=== PATIENT | male | born 1955 | race Caucasian/White ===

== ENCOUNTER 2025-04-19 18:09 | Inpatient (IN) | payer OTHER ==
[~2025-04-19] VITALS: Ht 188 cm; Wt 90.0 kg
--- NOTE | 2025-04-19 18:17 | ED.PDOC ---
CPR-HPI HPI Comments 69 y/o M, ROBERTA, with PMHx of PE, presents to the ED in full arrest with auto- pulse in place. EMS reports, patient is coming from home where found patient unresponsive; last seen normal 1000 this morning (04/19/25). Per EMS, upon arrival to scene had initiated CPR and patient's initial rhythm was asystole then converted to AFib then back to asystole. In route to the ED, patient was given x5 epinephrin and x2 lidocaine with no change in status. Patient was approximally down for x30min TOBACCO WAREHOUSE AGENT at the ED at 1807, ROSC was obtained at 1810. At this time patient was transferred to ED bed 19 and care is ongoing according to ACLS protocol. Time Seen by MD: 18:07 Reviewed Notes: Nurses Notes, Housekeeping And Laundry Team Leader Notes, Medications, Allergies Allergies: Uncoded Allergies: CORTIZONE TOPICAL (Allergy, Severe, 04/18/22) Information Source: Emergency Med Personnel Mode of Arrival: EMS Timing: Minutes Duration: Down time prior EMS: (30), Total time prior hopital: (37) Onset: Unknown Available Hx: Unknown Inital rhythm: Asystole Treatment: CPR, Defibrillation Response: Sustained return of pulse Associated signs and symptoms: Unknown Past Medical History PAST MEDICAL HISTORY: PE Surgical History: Unknown Family History Family History: Unknown Social History Smoker: Unknown Alcohol: Unknown Drugs: Unknown Lives In: Home Unable to Obtain due to: Medical Urgency Was a procedure done? Was a procedure done?: No Differential Dx CPR Differential Diagnosis: Cardiopulmonary arrest, Pulmonary Embolus X-Ray, Labs, Meds, VS Vital Signs Date Time Temp Pulse Resp B/P (MAP) Pulse Ox O2 Delivery O2 Flow Rate FiO2 04/19/25 19:38 138/76 04/19/25 19:00 83 129/75 (93) 100 04/19/25 18:58 81 8 128/76 (93) 100 04/19/25 18:53 79 132/73 (92) 04/19/25 18:50 132/73 04/19/25 18:48 77 30 116/74 (88) 100 04/19/25 18:46 60/35 04/19/25 18:43 81 8 116/67 (83) 100 04/19/25 18:38 75 11 93/58 (70) 99 04/19/25 18:33 75 21 83/50 (61) 98 04/19/25 18:30 78 10 78/48 (58) 96 04/19/25 18:29 79 15 79/54 (62) 96 04/19/25 18:27 80 17 56/34 (41) 86 04/19/25 18:23 86 17 60/35 (43) 88 04/19/25 18:21 70 20 117/49 (71) 94 100 04/19/25 18:13 96 04/19/25 18:12 97.4 95 16 105/68 (80) 97.4 Lab Test 04/19/25 19:12 04/19/25 18:20 04/19/25 18:14 Range/Units Blood Gas Specimen Type Arterial Blood Gas Sample Site Right radial Blood Gas Patient Temperature 37.0 Arterial Blood Date Drawn [id number] Arterial Blood pH 7.040 *L 7.350-7.450 Arterial Blood Partial Pressure CO2 57.8 H 35.0-48.0 mmHg Arterial Blood Partial Pressure O2 285.4 H 83.0-108.0 mmHg Arterial Blood HCO3 15.3 L 21.0-28.0 mmol/L Arterial Blood Oxygen Saturation 99.4 H 94.0-98.0 % Arterial Blood Base Excess -15.7 L -2.0-3.0 mmol/L Arterial Blood Oxyhemoglobin 98.2 H 94.0-98.0 % Arterial Blood Carboxyhemoglobin 0.3 L 0.5-1.5 % Arterial Blood Methemoglobin 0.9 0.0-1.5 % Arterial Blood Deoxyhemoglobin 0.6 0.0-5.0 % Bassam Test Modified Blood Gas Total Hemoglobin 14.30 13.5-17.5 g/dL Blood Gas Set Respiration Rate 20.0 Blood Gas Modality Vent - ac FiO2 % 100.0 Blood Gas Tidal Volume 450.0 Blood Gas PEEP or CPAP 5.0 Blood Gas Critical Value Read Back Yes Blood Gas Notified Whom joe Morrison md Blood Gas Notified Time [id number] Blood Gas Notified By jennifer Becerra rrt Urine Color Yellow Yellow Urine Clarity Turbid H Clear Urine pH 6.0 5.0-9.0 Urine Specific [place] 1.025 1.001-1.035 Urine Protein 1+ H Negative Urine Ketones Negative Negative Urine Blood 1+ H Negative /uL Urine Nitrite Negative Negative Urine Bilirubin Negative Negative Urine Urobilinogen Normal Negative mg/dL Urine Leukocyte Esterase 1+ Negative /uL Urine RBC 13 0 - 3 /hpf Urine Microscopic WBC 16 H 0-3 /HPF Urine Squamous Epithelial Cells Few <5 /hpf Urine Bacteria Few H None Seen /hpf Urine Hyaline Casts Few 0 - 2 /lpf Urine Mucus Few None Seen Urine Glucose Normal Normal mg/dL White Blood Count 4.2 L 4.4-10.8 10^3/uL Red Blood Count 4.20 L 4.5-5.90 10^6/uL Hemoglobin 12.9 L 13.5-17.5 g/dL Hematocrit 41.8 41.0-53.0 % Mean Corpuscular Volume 99.3 80.0-100.0 fL Mean Corpuscular Hemoglobin 30.7 28.0-32.0 pg Mean Corpuscular Hemoglobin Concent 30.9 L 32.0-36.0 g/dL Red Cell Distribution Width 16.2 H 11.8-14.3 % Platelet Count 108 L 140-450 10^3/uL Mean Platelet Volume 10.0 6.9-10.8 fL Neutrophils (%) (Auto) 37.0-80.0 % Lymphocytes (%) (Auto) 10.0-50.0 % Monocytes (%) (Auto) 0.0-12.0 % Basophils (%) (Auto) 0.0-2.0 % Neutrophils # (Auto) 1.6-8.6 10 ^3/uL Lymphocytes # (Auto) 0.4-5.4 10 ^3/uL Monocytes # (Auto) 0-1.3 10 ^3/uL Differential Total Cells Counted 100.0 100 Neutrophils % (Manual) 36 L 37.0-80.0 Band Neutrophils % (Manual) 0 Lymphocytes % (Manual) 53 H 10.0-50.0 Monocytes % (Manual) 8 0-12 Eosinophils % (Manual) 3 0-7 Basophils % (Manual) 0 0.0-2.0 Metamyelocytes % (manual) 0 Myelocytes % (Manual) 0 Promyelocytes % (Manual) 0 Blast Cells % (Manual) 0 Reactive Lymphocytes 0 Platelet Estimate Decreased Sodium Level 140 136-145 mmol/L Potassium Level 4.2 3.5-5.1 mmol/L Chloride Level 104 98-107 mmol/L Carbon Dioxide Level 16 L 20-31 mmol/L Anion Gap 20 H 5-15 Blood Urea Nitrogen 16 9-23 mg/dL Creatinine 1.08 0.700-1.30 mg/dL Glomerular Filtration Rate Calc 74 >90 mL/min BUN/Creatinine Ratio 14.8 10.0-20.0 Serum Glucose 367 H 74-106 mg/dL Lactic Acid Level 10.7 *H 0.4-2.0 mmol/L Calcium Level 8.5 L 8.7-10.4 mg/dL Phosphorus Level 8.0 H 2.4-5.1 mg/dL Magnesium Level 2.7 H 1.6-2.6 mg/dL Total Bilirubin 0.2 0.2-1.0 mg/dL Aspartate Amino Transferase (AST) 153 H 13-40 U/L Alanine Aminotransferase (ALT) 134 H 7-40 U/L Alkaline Phosphatase 109 46-116 U/L Troponin I High Sensitivity 1227 *H </=54 ng/L B-Type Natriuretic Peptide 198.22 0-100 pg/mL Total Protein 5.4 L 5.7-8.2 g/dL Albumin 3.6 3.2-4.8 g/dL Lipase 41 12-53 U/L Current Medications Medications (Trade) Dose Ordered Sig/Brittany Route Start Time Stop Time Status Last Admin Norepinephrine Bitartrate 250 ml @ 3.75 mls/hr Q24H IV 04/19/25 18:30 04/19/25 18:46 Sodium Chloride 1,000 ml @ 1,000 mls/hr Q1H ONCE IV 04/19/25 18:45 04/19/25 19:44 DC 04/19/25 18:32 Time of 1ST Reevaluation: 18:37 Reevaluation 1ST: Unchanged Patient Education/Counseling: Pt Unresponsive Family Education/Counseling: Diagnosis, Treatment SEPSIS Sepsis Screen Physician Orders Blood Culture (04/19/25 18:18) Urine Bacterial Culture (04/19/25 18:18) Insert Kat Catheter QSHIFT (04/19/25 18:18) Troponin-I Hs (04/19/25 19:18) Troponin-I Hs (04/19/25 21:18) Electrocardigram (04/19/25 19:18) Electrocardigram (04/19/25 21:18) Ventilator Orders (04/19/25 18:22) Respiratory Culture W/ Gs (04/19/25 18:22) Abg W/ Co-Ox (04/19/25 19:00) Communication Order (04/19/25 18:23) Norepinephrine 8 Mg/250ml Kit (Levophed) (04/19/25 18:30) Chest Portable (04/19/25 18:30) Calcium Gluc 1,000mg/50ml-Ns (04/19/25 19:15) Head Without Contrast (04/19/25 19:19) Ct Chest/Ab/Pl W Con- Iv Only (04/19/25 19:19) Sodium Bicarb 50meq/50ml Vial (04/19/25 19:30) Vital Signs Date Time Temp Pulse Resp B/P (MAP) Pulse Ox O2 Delivery O2 Flow Rate FiO2 04/19/25 19:38 138/76 04/19/25 19:00 83 129/75 (93) 100 04/19/25 18:58 81 8 128/76 (93) 100 04/19/25 18:53 79 132/73 (92) 04/19/25 18:50 132/73 04/19/25 18:48 77 30 116/74 (88) 100 04/19/25 18:46 60/35 04/19/25 18:43 81 8 116/67 (83) 100 04/19/25 18:38 75 11 93/58 (70) 99 04/19/25 18:33 75 21 83/50 (61) 98 04/19/25 18:30 78 10 78/48 (58) 96 04/19/25 18:29 79 15 79/54 (62) 96 04/19/25 18:27 80 17 56/34 (41) 86 04/19/25 18:23 86 17 60/35 (43) 88 04/19/25 18:21 70 20 117/49 (71) 94 100 04/19/25 18:13 96 04/19/25 18:12 97.4 95 16 105/68 (80) 97.4 Laboratory Tests Test 04/19/25 18:14 Lactic Acid Level 10.7 mmol/L (0.4-2.0) *H White Blood Count 4.2 10^3/uL (4.4-10.8) L Medications Medications Dose Ordered Sig/Brittany Route Start Time Stop Time Status Last Admin Dose Admin Norepinephrine Bitartrate 250 ml @ 3.75 mls/hr Q24H IV 04/19/25 18:30 04/19/25 18:46 Sodium Chloride 1,000 ml @ 1,000 mls/hr Q1H ONCE IV 04/19/25 18:45 04/19/25 19:44 DC 04/19/25 18:32 Critical Care Note Critical Care Time?: No Heart Score Heart Score: Heart Score Response (Comments) Value History N/A 0 EKG N/A 0 Age N/A 0 Risk Factors N/A 0 Troponin N/A 0 Total 0 Stability Stability form required: No I personally scribed for DALTON MORRISON MD ([email or web address]) on 04/19/25 at 18:17. Electronically submitted by Keyona Haider ([facility] [employer] I personally scribed for DALTON MORRISON MD ([email or web address]) on 04/19/25 at 19:02. Electronically submitted by Keyona Haider ([facility] [employer] I personally scribed for DALTON MORRISON MD ([email or web address]) on 04/19/25 at 19:46. Electronically submitted by Keyona Haider ([facility] [employer] DALTON MORRISON MD Apr 19, 2025 18:17
--- NOTE | 2025-04-19 18:24 | ECG ---
[facility] Test Date: 2025-04-19 Test Time: 18:13:32 Pat Name: SANDRA SUH Department[facility] Patient [id number] Room: Gender: M Cloud Architect: : [id number] Requested By: DALTON FREDERICK Order Number: [id number] Reading MD: Jon Paredes Measurements Intervals Schneider Rate: 96 P: -80 [place]: 131 QRS: 134 QRSD: 194 T: -77 QT: 432 QTc: 546 Interpretive Statements Sinus or ectopic atrial rhythm Right bundle branch block Repol abnrm, severe global ischemia (LM/MVD) Baseline wander in lead(s) I Electronically Signed On 04-21-2025 16:33:09 PST by Jon Paredes Please click the below link to view image of tracing.
[2025-04-19] MEDS: NOREPINEPHRINE 8 MG/250ML KIT 250 ML IV ONE (18:31)
[2025-04-19] MEDS: SODIUM CHLORIDE 0.9% 1,000 ML IV ONE (18:32)
[2025-04-19] MEDS: NOREPINEPHRINE 8 MG/250ML KIT 250 ML IV SCH (18:46)
[2025-04-19 18:51] LABS: Hematocrit 41.8 % (41.0-53.0); Hemoglobin 12.9 g/dL (13.5-17.5); Mean Corpuscular Hemoglobin 30.7 pg (28.0-32.0); Mean Corpuscular Volume 99.3 fL (80.0-100.0)
[2025-04-19 18:56] LABS: Urine Protein, UAD 1+ (Negative)
[2025-04-19 19:07] LABS: Albumin 3.6 g/dL (3.2-4.8); Alkaline Phosphatase 109 U/L (46-116); Anion Gap 20 (5-15); BUN/Creatinine Ratio 14.8 (10.0-20.0); Blood Urea Nitrogen 16 mg/dL (9-23); Chloride 104 mmol/L (98-107); Lipase 41 U/L (12-53); Potassium 4.2 mmol/L (3.5-5.1); Sodium 140 mmol/L (136-145)
[2025-04-19 19:10] LABS: Alanine Aminotransferase 134 U/L (7-40); Bilirubin, Total 0.2 mg/dL (0.2-1.0); Calcium 8.5 mg/dL (8.7-10.4); Carbon Dioxide 16 mmol/L (20-31); Glucose 367 mg/dL (74-106); Magnesium 2.7 mg/dL (1.6-2.6); Total Protein 5.4 g/dL (5.7-8.2)
--- NOTE | 2025-04-19 19:10 | DVH ---
CHEST RADIOGRAPH INDICATION: s/p intubation TECHNIQUE: Single frontal view of the chest was obtained COMPARISON: None FINDINGS: ET tube tip in the distal trachea terminating a proximally 1.5 cm above the valerio. NG tube at the gastric fundus. Cardiac silhouette is enlarged with slight prominence of the pulmonary vasculature. Mild streaky bibasilar atelectatic changes. IMPRESSION: ETT tip well positioned. Cardiomegaly with mild pulmonary venous congestion.
[2025-04-19 19:13] LABS: Lactic Acid w/Reflex 10.7 mmol/L (0.4-2.0)
[2025-04-19 19:16] LABS: Total Cells Counted 100.0 (100)
[2025-04-19 19:27] LABS: Base Excess -15.7 mmol/L (-2.0-3.0)
--- NOTE | 2025-04-19 19:46 | RESUS ---
CODE KIRSTEN ASSESSSMENT History of Events History of Events: Secured code kirsten arrived at 1807 intubated size 7.0 22 at teeth and with IO in left tibia and on automatic compression device. Initial Information Date: Apr 19, 2025 Time: 18:07 Location of Arrest: at home Arrest Witnessed: No Pre-Hospital Care: ACLS Type of arrest: Cardiac, Adult, Unwitnessed (last seen well 1000 am) Spontaneous Respirations: No Pulse Present: No Monitoring: ECG, Pulse Oximetry Crash Cart Opened and Supplies: Yes Airway Ventilation Breathing at Onset: Assisted Oxygen Delivery Method: Ambu-Bag Artificial Ventilation: Bag/Endo tube Intubation Size: 7.0 cuffed Intubated by: EMS prior to arrival Intubated orally: Yes Tube secured at: 22 Circulation Circulation : Time: 18:10 Pulse Rate (adult): 93 Blood Pressure Systolic: 105 Blood Pressure Diastolic: 68 Temperature (Fahrenheit): 97.4 Circulation Comment: ROSC Defibrillation Defbrillation : Time Defibrillator Applied: 18:07 Procedure - IV Procedure - IV #1: IV start time: 18:09 IV Side: Left IV Location: Forearm Anterior IV Catheter Type: Peripheral IV IV Placed: RN IV Gauge: 20 Procedure - IV #2: IV start time: 18:10 IV Side: Right IV Location: Antecubital IV Catheter Type: Peripheral IV IV Placed: RN IV Gauge: 22 Nurses Notes Analisa Coma Scale Eye Opening: None (1) [place] Coma Scale Verbal: None (1) [place] Coma Scale Motor: None (1) Pupil Reaction: Non Reactive Bedside Blood Glucose: 156 Time Code Ended Time Code Ended: 18:10 Outcome of code: Successful Code Team Present: Yasmani Mike storeroom supervisor, Caterina BOOM CONVEYOR OPERATOR charge, Susana BOOM CONVEYOR OPERATOR charge orientee, Merissa RN, Ashli RN, Radhika RT, Lesly ERT, Vicki Software Maintenance Engineer, ROSC Time of ROSC: 18:10 Pt Meets Criteria for Therapeu: Yasmani Briceno Apr 19, 2025 19:46
[2025-04-19 20:09] VITALS: BP 140/76; PULSE 83; RESP 20; O2SAT 97
--- NOTE | 2025-04-19 20:18 | DVH ---
CT HEAD WITHOUT CONTRAST INDICATION: cardiac arrest COMPARISON: None TECHNIQUE: CT of the head without intravenous contrast. RADIATION DOSE: CTDIvol: 56.26 mGy, DLP: 1108.73 mGy*cm FINDINGS: Evidence of intravascular contrast presumably related to recent contrast administration. No evidence of intracranial hemorrhage, infarct, mass effect or vasogenic edema. Ventricles and CSF spaces are normal with no hydronephrosis. No extra- axial hemorrhage or fluid collection. No calvarial abnormality noted. Mild mucosal thickening in maxillary sinuses; the remainder of visualized paranasal sinuses, mastoid air cells, and middle ear cavities are clear. Orbits appear unremarkable. IMPRESSION: No intracranial abnormality identified.
--- NOTE | 2025-04-19 20:37 | DVH ---
EXAM: CT CT CHEST/AB/PL W CON- IV ONLY HISTORY: cardiac arrest, hx of pe TECHNIQUE: Volumetric multidetector CT images of the abdomen and pelvis were obtained after the administration of intravenous contrast. All CT scans at this facility use dose modulation, iterative reconstruction, and/or weight based dosing when appropriate to reduce radiation dose to as low as reasonably achievable. COMPARISON: CT CHEST PELVIS W CONTRAST ABDOMEN W WO CONTRAST on DOS: 07/22/24 FINDINGS: [LOWER CHEST]: Bibasilar consolidations of bilateral lower lobes with peribronchial thickening, minimal traction bronchiolectasis. Inconspicuous ground-glass in the left upper lobe. Endotracheal tube in place. Overall correlate for aspiration related pneumonia. [LIVER]: Normal hepatic size without suspicious focal lesion. [GALLBLADDER AND BILIARY TREE]: Gallbladder is distended with intramural edema, gallbladder is distended up to 9.7 cm. No cholelithiasis. [SPLEEN]: Unremarkable. [PANCREAS]: Unremarkable. [ADRENAL GLANDS]: Unremarkable [KIDNEYS]: Benign-appearing cysts of the right kidney. No hydronephrosis. No nephroureterolithiasis. No suspicious focal lesion. [BLADDER]: Kat catheter of the bladder with slight bladder wall thickening. Unremarkable for the degree distention. [REPRODUCTIVE ORGANS]: Unremarkable. [BOWEL/MESENTERY]: Enteric tube extending into the central body of the stomach with air-fluid level. Fluid distention of multiple bowel loops and air-fluid distention of the ascending colon. Correlate for ileus versus enteritis. Stomach is normal. No CT evidence of bowel obstruction. [ASCITES]: Trace perihepatic ascites. Absent [LYMPHADENOPATHY]: Right lower paratracheal lymph node measuring 0.9 cm. No pathologically enlarged lymph nodes by CT size criteria [VASCULATURE]: Small amount of intravascular air which may be related to injection along the left common femoral vein. No aneurysmal dilatation. [ABDOMINAL WALL]: Unremarkable. [MUSCULOSKELETAL]: No acute fracture or aggressive focal osseous lesion. IMPRESSION: 1. Bibasilar consolidations of bilateral lower lobes with peribronchial thickening, minimal traction bronchiolectasis. 2. Inconspicuous ground-glass in the left upper lobe. 3. Endotracheal tube in place. 4. Overall correlate for aspiration related pneumonia. 5. Distended gallbladder with intramural edema. 6. No cholelithiasis. 7. Fluid distention of multiple bowel loops and air-fluid distention of the ascending colon. 8. Correlate for ileus versus enteritis. 9. Trace perihepatic ascites.
[2025-04-19] MEDS ORDERED: VANCOMYCIN 1GM/250ML KIT 250 ML IV ONE (20:45)
[2025-04-19] MEDS: PROPOFOL 100 ML IV SCH (21:09)
[2025-04-19] MEDS ORDERED: ONDANSETRON HCL 4 MG/2 ML VIAL IV PRN (21:15)
[2025-04-19] MEDS ORDERED: DEXTROSE (50%) 50ML SYRG IV PRN (21:15)
[2025-04-19] MEDS ORDERED: VANCOMYCIN PER PHARMACY 0 MG IV SCH (21:15)
[2025-04-19] MEDS ORDERED: IBUPROFEN 100MG/5ML ORAL SUSP 100 MG/5 ML UD GT PRN (21:15)
[2025-04-19] MEDS: MIDAZOLAM DRIP 100 mg/100mL NS 100 ML IV SCH (21:27)
[2025-04-19] MEDS: PROPOFOL 100 ML IV ONE (21:33)
[2025-04-19] MEDS: MIDAZOLAM DRIP 100 mg/100mL NS 100 ML IV ONE (21:39)
[2025-04-19] MEDS: SODIUM CHLOR 0.9% PF (SALINE LOCK) 10ML VIAL/SYR IV SCH (22:00)
--- NOTE | 2025-04-19 22:09 | DVHNC2 ---
Central Line Recorder of insertion practice: Publishing Systems Analyst Occupation of pin inserter regulator: Other (Resident) Indication: Hypotension Room prepared for procedure: Yes Publishing Systems Analyst performed hand hygien: Yes Maximal sterile barrier precau: Mask/Eye shield, Sterile gown, Cap, Sterlie gloves, Large sterlie drape Skin Preparation: Chlorhexidine gluconate Skin preparation completely dr: Yes Insertion site: Right, Internal jugular Central line catheter type: [id number] dialysis Number of lumens: 3 Central line exchanged over a: Yes Antiseptic ointment applied to: Yes Post Assessment: Chest X-Ray (pending cxr read at this time) Informed consent obtained: Yes Risks/benefits/alt described: Yes Date of Service: Apr 19, 2025 Billing Provider: DALTON FREDERICK MD Common Visit Codes: PROCEDURE ONLY ENE REAL RESIDENT Apr 19, 2025 22:09
[2025-04-19 22:11] VITALS: BP 145/64; PULSE 93; RESP 25; O2SAT 99
[2025-04-19] MEDS: IOHEXOL 300 MG/ML 100ML BOTTLE IJ ONE (22:12)
[2025-04-19] MEDS: CALCIUM GLUC 1,000mg/50ml-NS 50 ML IV SCH (22:21)
[2025-04-19] MEDS: HEPARIN 1,000 UNITS/ml 1ML VIAL IV ONE (22:21)
[2025-04-19] MEDS: SODIUM BICARB 8.4% 50Meq/50ml SYR Vial IV ONE (22:27)
[2025-04-19] MEDS ORDERED: NITROGLYCERIN 0.4 MG SL TAB SL PRN (22:30)
[2025-04-19] MEDS ORDERED: MORPHINE SULFATE INJ 2 MG/ml SYRG IV PRN (22:30)
--- NOTE | 2025-04-19 22:32 | DVHHP2 ---
History of Present Illness Reason for Visit: Cardiopulmonary arrest History of Present Illness The patient is a 69-year-old male with past medical history of pulmonary embolism, hypertension, and hyperlipidemia who presented to [facility] ED for evaluation of full cardiac arrest. As reported by EMS, patient came from home where his found him unresponsive and called 911. When EMS arrived on the scene, had initiated CPR and patient's initial rhythm was asystole then converted to AFib then back to asystole. In route to the ED, patient was given x5 epinephrin and x2 lidocaine with no change in status. 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 Patient was seen and evaluated in the ED, laboratory data shows WBC 4.2, hemoglobin 12.9, hematocrit 41.8, platelets 108, sodium 140, potassium 4.2, BUN 16, creatinine 1.08, GFR 74, glucose 367, hemoglobin A1c 5.4, calcium 8.5, phosphorus 8.0, magnesium 2.7, AST 153, ALT 134, BNP 198.22, troponin 1227 trending up, lipase 41, protein 5.4, blood pressure 60/35 trending up to 136/84, heart rate 83, temperature 97.6 F, O2 saturation 94% on ventilator. Head CT showed no intracranial abnormality. Chest/abdomen/pelvis CT revealing bibasilar consolidation of bilateral lower lobes with peribronchial thickening, minimal traction bronchiectasis, fluid distention of multiple bowel loops and air-fluid distention of the ascending colon; correlate for ileus versus enteritis. Please see medication orders section in the computer. On my assessment, daughter at bedside, patient remains fully intubated, no diaphoresis, diarrhea, vomiting, fever, no chills. Patient was admitted for further evaluation and medical management. Past Medical History PE, HTN, HLD. Past Surgical History Unknown Family History Reviewed, noncontributory to the management of this case. Past Social History The patient lives at home, no history of smoking, alcohol or illicit drugs abuse on file. Review of Systems Constitutional: Yes: Weakness; No: Fever, Chills, Sweats, Malaise, Other Eyes: No: Pain, Vision change, Conjunctivae inflammation, Eyelid inflammation, Other, Redness ENT: No: Ear pain, Ear discharge, Nose pain, Nose discharge, Nose congestion, Mouth pain, Mouth swelling, Throat pain, Throat swelling, Other Respiratory: Shortness of breath; No: Cough, Dry, SOB with excertion, Wheezing, Hemoptysis, Pleuritic Pain, Sputum, Wheezing, Other Cardiovascular: Other (Cardiac arrest); No: Chest Pain, Palpitations, Orthop bharati, Paroxysmal Noc. Dyspnea, Edema, Lt Headedness Gastrointestinal: No: Nausea, Vomiting, Abdominal Pain, Diarrhea, Constipation, Melena, Hematochezia, Other Genitourinary: No Dysuria, No Frequency, No Incontinence, No Hematuria, No Retention; Other (Kat catheter in place) Musculoskeletal: No: other, neck pain, shoulder pain, arm pain, back pain, hand pain, leg pain, foot pain Skin: No: Rash, Lesions, Jaundice, Bruising, Other Neurological: No: Weakness, Numbness, Incoordination, Change in speech, Con fusion, Seizures, Other Allergies: Uncoded Allergies: CORTIZONE TOPICAL (Allergy, Severe, 04/18/22) Medications Current Medications Medications Dose Ordered Sig/Brittany Route Start Time Stop Time Status Last Admin Dose Admin Norepinephrine Bitartrate 250 ml @ 3.75 mls/hr Q24H IV 04/19/25 18:30 04/19/25 18:46 56.25 MLS/HR Propofol 100 ml @ 2.7 mls/hr Q24H IV 04/19/25 21:00 04/19/25 21:09 2.7 MLS/HR Ceftriaxone Sodium 50 ml @ 100 mls/hr DAILY@09 IV 04/20/25 09:00 Vancomycin HCl 0 ml @ 0 mls/hr PER PHARMACY IV 04/19/25 21:15 Ibuprofen 400 mg Q4HP PRN GT 04/19/25 21:15 Furosemide 20 mg DAILY IV 04/20/25 10:00 Diagnostic Test (Pha) 1 strip IQ4HR 04/20/25 00:00 Insulin Human Regular IQ4HR SC 04/20/25 00:00 Dextrose 50 ml UD PRN IV 04/19/25 21:15 Sodium Chloride 10 ml Q8HR IV 04/19/25 22:00 Ondansetron HCl 4 mg Q4HP PRN IV 04/19/25 21:15 Hold Midazolam HCl 100 ml @ 1 mls/hr Q24H IV 04/19/25 21:45 04/19/25 21:27 1 MLS/HR Vancomycin HCl 250 ml @ 250 mls/hr Q1H IV 04/19/25 21:45 04/19/25 23:44 Exam Vital Signs Vital Signs Date Time Temp Pulse Resp B/P (MAP) Pulse Ox O2 Delivery O2 Flow Rate FiO2 04/19/25 22:09 93 04/19/25 21:27 149/60 04/19/25 20:09 20 97 50 04/19/25 19:46 207.3 Ambu-Bag 04/19/25 19:31 0 General Appearance: Other (Cardiac arrest) HEENT: Atraumatic, PERRLA, EOMI, Mucous membr. moist/pink Respiratory: Normal air movement, Other (On ventilator) Cardiovascular: Regular rate, Normal S1, Normal S2, No murmurs Abdominal: Normal bowel sounds, Soft, No tenderness, No hepatospenomegaly, No masses Extremities: No clubbing, No edema, Normal pulses, No tenderness/swelling Skin: No rashes, No significant lesion Neuro: Other (Altered level of consciousness) Psych/Mental Status: Other (Unobtainable) Labs/Xrays Labs Test 04/19/25 21:34 04/19/25 19:52 04/19/25 19:12 04/19/25 18:20 Range/Units Lactic Acid Level 7.3 *H 0.4-2.0 mmol/L Blood Gas Specimen Type Arterial Blood Gas Sample Site Right radial Blood Gas Patient Temperature 37.0 Arterial Blood Date Drawn [id number] Arterial Blood pH 7.040 *L 7.350-7.450 Arterial Blood Partial Pressure CO2 57.8 H 35.0-48.0 mmHg Arterial Blood Partial Pressure O2 285.4 H 83.0-108.0 mmHg Arterial Blood HCO3 15.3 L 21.0-28.0 mmol/L Arterial Blood Oxygen Saturation 99.4 H 94.0-98.0 % Arterial Blood Base Excess -15.7 L -2.0-3.0 mmol/L Arterial Blood Oxyhemoglobin 98.2 H 94.0-98.0 % Arterial Blood Carboxyhemoglobin 0.3 L 0.5-1.5 % Arterial Blood Methemoglobin 0.9 0.0-1.5 % Arterial Blood Deoxyhemoglobin 0.6 0.0-5.0 % Bassam Test Modified Blood Gas Total Hemoglobin 14.30 13.5-17.5 g/dL Blood Gas Set Respiration Rate 20.0 Blood Gas Modality Vent - ac FiO2 % 100.0 Blood Gas Tidal Volume 450.0 Blood Gas PEEP or CPAP 5.0 Blood Gas Critical Value Read Back Yes Blood Gas Notified Whom joe Frederick md Blood Gas Notified Time [id number] Blood Gas Notified By jennifer Becerra rrt Urine Color Yellow Yellow Urine Clarity Turbid H Clear Urine pH 6.0 5.0-9.0 Urine Specific [place] 1.025 1.001-1.035 Urine Protein 1+ H Negative Urine Ketones Negative Negative Urine Blood 1+ H Negative /uL Urine Nitrite Negative Negative Urine Bilirubin Negative Negative Urine Urobilinogen Normal Negative mg/dL Urine Leukocyte Esterase 1+ Negative /uL Urine RBC 13 0 - 3 /hpf Urine Microscopic WBC 16 H 0-3 /HPF Urine Squamous Epithelial Cells Few <5 /hpf Urine Bacteria Few H None Seen /hpf Urine Hyaline Casts Few 0 - 2 /lpf Urine Mucus Few None Seen Urine Glucose Normal Normal mg/dL Test 04/19/25 18:14 Range/Units White Blood Count 4.2 L 4.4-10.8 10^3/uL Red Blood Count 4.20 L 4.5-5.90 10^6/uL Hemoglobin 12.9 L 13.5-17.5 g/dL Hematocrit 41.8 41.0-53.0 % Mean Corpuscular Volume 99.3 80.0-100.0 fL Mean Corpuscular Hemoglobin 30.7 28.0-32.0 pg Mean Corpuscular Hemoglobin Concent 30.9 L 32.0-36.0 g/dL Red Cell Distribution Width 16.2 H 11.8-14.3 % Platelet Count 108 L 140-450 10^3/uL Mean Platelet Volume 10.0 6.9-10.8 fL Neutrophils (%) (Auto) 37.0-80.0 % Lymphocytes (%) (Auto) 10.0-50.0 % Monocytes (%) (Auto) 0.0-12.0 % Basophils (%) (Auto) 0.0-2.0 % Neutrophils # (Auto) 1.6-8.6 10 ^3/uL Lymphocytes # (Auto) 0.4-5.4 10 ^3/uL Monocytes # (Auto) 0-1.3 10 ^3/uL Differential Total Cells Counted 100.0 100 Neutrophils % (Manual) 36 L 37.0-80.0 Band Neutrophils % (Manual) 0 Lymphocytes % (Manual) 53 H 10.0-50.0 Monocytes % (Manual) 8 0-12 Eosinophils % (Manual) 3 0-7 Basophils % (Manual) 0 0.0-2.0 Metamyelocytes % (manual) 0 Myelocytes % (Manual) 0 Promyelocytes % (Manual) 0 Blast Cells % (Manual) 0 Reactive Lymphocytes 0 Platelet Estimate Decreased Sodium Level 140 136-145 mmol/L Potassium Level 4.2 3.5-5.1 mmol/L Chloride Level 104 98-107 mmol/L Carbon Dioxide Level 16 L 20-31 mmol/L Anion Gap 20 H 5-15 Blood Urea Nitrogen 16 9-23 mg/dL Creatinine 1.08 0.700-1.30 mg/dL Glomerular Filtration Rate Calc 74 >90 mL/min BUN/Creatinine Ratio 14.8 10.0-20.0 Serum Glucose 367 H 74-106 mg/dL Hemoglobin A1c 5.4 <5.7 % A1C Calcium Level 8.5 L 8.7-10.4 mg/dL Phosphorus Level 8.0 H 2.4-5.1 mg/dL Magnesium Level 2.7 H 1.6-2.6 mg/dL Total Bilirubin 0.2 0.2-1.0 mg/dL Aspartate Amino Transferase (AST) 153 H 13-40 U/L Alanine Aminotransferase (ALT) 134 H 7-40 U/L Alkaline Phosphatase 109 46-116 U/L B-Type Natriuretic Peptide 198.22 0-100 pg/mL Total Protein 5.4 L 5.7-8.2 g/dL Albumin 3.6 3.2-4.8 g/dL Lipase 41 12-53 U/L PATIENT: SANDRA [facility] ACCT: [id number] UNIT: [id number] : 1955 LOC: ER ROOM / BED: / AGE / SEX: 69 / M ADM STATUS: REG ER SERVICE 18 ORDERING PHYSICIAN: DALTON FREDERICK MD PROCEDURE(s): CAPIV - CT CHEST/AB/PL W CON- IV ONLY REASON: cardiac arrest, hx of pe ORDER NUMBER(s): [id number], ACCESSION NUMBER(s): [id number] EXAM: CT CT CHEST/AB/PL W CON- IV ONLY HISTORY: cardiac arrest, hx of pe TECHNIQUE: Volumetric multidetector CT images of the abdomen and pelvis were obtained after the administration of intravenous contrast. All CT scans at this facility use dose modulation, iterative reconstruction, and/or weight based dosing when appropriate to reduce radiation dose to as low as reasonably achievable. COMPARISON: CT CHEST PELVIS W CONTRAST ABDOMEN W WO CONTRAST on DOS: 07/22/24 FINDINGS: [LOWER CHEST]: Bibasilar consolidations of bilateral lower lobes with peribronchial thickening, minimal traction bronchiolectasis. Inconspicuous ground-glass in the left upper lobe. Endotracheal tube in place. Overall correlate for aspiration related pneumonia. [LIVER]: Normal hepatic size without suspicious focal lesion. [GALLBLADDER AND BILIARY TREE]: Gallbladder is distended with intramural edema, gallbladder is distended up to 9.7 cm. No cholelithiasis. [SPLEEN]: Unremarkable. [PANCREAS]: Unremarkable. [ADRENAL GLANDS]: Unremarkable [KIDNEYS]: Benign-appearing cysts of the right kidney. No hydronephrosis. No nephroureterolithiasis. No suspicious focal lesion. [BLADDER]: Kat catheter of the bladder with slight bladder wall thickening. Unremarkable for the degree distention. [REPRODUCTIVE ORGANS]: Unremarkable. [BOWEL/MESENTERY]: Enteric tube extending into the central body of the stomach with air-fluid level. Fluid distention of multiple bowel loops and air-fluid distention of the ascending colon. Correlate for ileus versus enteritis. Stomach is normal. No CT evidence of bowel obstruction. [ASCITES]: Trace perihepatic ascites. Absent [LYMPHADENOPATHY]: Right lower paratracheal lymph node measuring 0.9 cm. No pathologically enlarged lymph nodes by CT size criteria [VASCULATURE]: Small amount of intravascular air which may be related to injection along the left common femoral vein. No aneurysmal dilatation. [ABDOMINAL WALL]: Unremarkable. [MUSCULOSKELETAL]: No acute fracture or aggressive focal osseous lesion. IMPRESSION: 1. Bibasilar consolidations of bilateral lower lobes with peribronchial thickening, minimal traction bronchiolectasis. 2. Inconspicuous ground-glass in the left upper lobe. 3. Endotracheal tube in place. 4. Overall correlate for aspiration related pneumonia. 5. Distended gallbladder with intramural edema. 6. No cholelithiasis. 7. Fluid distention of multiple bowel loops and air-fluid distention of the asc ending colon. 8. Correlate for ileus versus enteritis. 9. Trace perihepatic ascites. ORDERING PHYSICIAN: DALTON FREDERICK MD PROCEDURE(s): CXRP - CHEST PORTABLE REASON: s/p intubation ORDER NUMBER(s): [id number], ACCESSION NUMBER(s): [id number] CHEST RADIOGRAPH INDICATION: s/p intubation TECHNIQUE: Single frontal view of the chest was obtained COMPARISON: None FINDINGS: ET tube tip in the distal trachea terminating a proximally 1.5 cm above the valerio. NG tube at the gastric fundus. Cardiac silhouette is enlarged with slight prominence of the pulmonary vasculature. Mild streaky bibasilar atelectatic changes. IMPRESSION: ETT tip well positioned. Cardiomegaly with mild pulmonary venous congestion. ORDERING PHYSICIAN: DALTON FREDERICK MD PROCEDURE(s): HWOCT - HEAD WITHOUT CONTRAST REASON: cardiac arrest ORDER NUMBER(s): [id number], ACCESSION NUMBER(s): [id number] CT HEAD WITHOUT CONTRAST INDICATION: cardiac arrest COMPARISON: None TECHNIQUE: CT of the head without intravenous contrast. RADIATION DOSE: CTDIvol: 56.26 mGy, DLP: 1108.73 mGy*cm FINDINGS: Evidence of intravascular contrast presumably related to recent contrast administration. No evidence of intracranial hemorrhage, infarct, mass effect or vasogenic edema. Ventricles and CSF spaces are normal with no hydronephrosis. No extra-axial hemorrhage or fluid collection. No calvarial abnormality noted. Mild mucosal thickening in maxillary sinuses; the remainder of visualized paranasal sinuses, mastoid air cells, and middle ear cavities are clear. Orbits appear unremarkable. IMPRESSION: No intracranial abnormality identified. ORDERING PHYSICIAN: DALTON FREDERICK MD PROCEDURE(s): CXRP - CHEST PORTABLE REASON: CENTRAL LINE PLACEMENT ORDER NUMBER(s): [id number], ACCESSION NUMBER(s): [id number] CHEST RADIOGRAPH INDICATION: CENTRAL LINE PLACEMENT TECHNIQUE: Single frontal view of the chest was obtained COMPARISON: XY CHEST PORTABLE on DOS: 04/19/25 FINDINGS: ETT terminating 4.6 cm above the valerio. Right IJ line with tip near the cavoatrial junction. NG tube in the proximal stomach. Streaky atelectatic changes at both lung bases, minimally changed. IMPRESSION: Lines and tubes as above. Streaky atelectatic changes at the lung bases. SEPSIS Sepsis Screen Date sepsis recognized/suspect: Apr 19, 2025 Time Sepsis recognized/suspect: 1806 Recent Procedure: No On Antibiotic Therapy: No Respiratory Rate >20: No Heart Rate >90: No Temp<36 C (96.8 F) or >38.3 C: No SBP <90 or MAP <65 mmHG: No New Acute Mental Status Change: Yes Is the patient on CPAP, BIPAP,: Yes Physician Orders Blood Culture (04/19/25 18:18) Urine Bacterial Culture (04/19/25 18:18) Insert Kat Catheter QSHIFT (04/19/25 18:18) Troponin-I Hs (04/19/25 21:18) Electrocardigram (04/19/25 19:18) Electrocardigram (04/19/25 21:18) Ventilator Orders (04/19/25 18:22) Respiratory Culture W/ Gs (04/19/25 18:22) Abg W/ Co-Ox (04/19/25 19:00) Communication Order (04/19/25 18:23) Norepinephrine 8 Mg/250ml Kit (Levophed) (04/19/25 18:30) Chest Portable (04/19/25 18:30) Head Without Contrast (04/19/25 19:19) Ct Chest/Ab/Pl W Con- Iv Only (04/19/25 19:19) Cefepime 1gm/50ml (Maxipime 1gm/50ml) (04/19/25 20:45) Notify Md If Map <65 Or Bp<90 (04/19/25 20:45) If Map<65 Start Vasopressor (04/19/25 20:45) Sepsis Reassesment After Fluid (04/19/25 21:45) Propofol (Diprivan) (04/19/25 21:00) * Surgical Consult (04/19/25 ) * Cardiology Consult (04/19/25 21:04) *Consult (04/19/25 21:04) Ceftriaxone 1gm/50ml (Rocephin) (04/20/25 09:00) Vancomycin Per Pharmacy (04/19/25 21:15) Ibuprofen 100mg/5 Ml Oral Susp (Motrin 1 (04/19/25 21:15) Furosemide Injection (Lasix Injection) (04/20/25 10:00) Phosphorus (04/20/25 04:00) Magnesium (04/20/25 04:00) Glucose Blood (Accu-Chek Comfort Curve T (04/20/25 00:00) Insulin R (Human) (Insulin R) (04/20/25 00:00) Dextrose 50% Syringe (04/19/25 21:15) Allergies (04/19/25 21:04) Code Status (04/19/25 21:04) Sodium Chloride Lock (Saline Lock Ns) (04/19/25 22:00) Oxygen Per Hour (04/19/25 21:04) Ondansetron Hcl (Zofran) (04/19/25 21:15) Fall Risk Precautions In Place QSHIFT (04/19/25 21:04) Complete Blood Count (04/20/25 04:00) Comprehensive Metabolic Panel (04/20/25 04:00) Npo (Nothing By Mouth) Diet (04/20/25 Breakfast) Condition: Serious (04/19/25 21:04) Maintain Bed Rest (04/19/25 21:04) Sequential Compression Device (04/19/25 ) Midazolam Drip 100 Mg/100ml Ns (Versed D (04/19/25 21:45) Vancomycin 1gm/250ml Kit (04/19/25 21:45) Chest Portable (04/19/25 22:09) Vancomycin,Random (04/20/25 04:00) Vital Signs Date Time Temp Pulse Resp B/P (MAP) Pulse Ox O2 Delivery O2 Flow Rate FiO2 04/19/25 22:09 93 04/19/25 21:27 149/60 04/19/25 21:09 141/75 04/19/25 21:09 149/60 04/19/25 20:51 154/75 04/19/25 20:42 149/87 04/19/25 20:33 136/84 04/19/25 20:09 83 20 140/76 (97) 97 50 04/19/25 19:50 140/76 04/19/25 19:46 207.3 93 Ambu-Bag 04/19/25 19:38 138/76 04/19/25 19:31 20 94 Room Air* 0 21 04/19/25 19:00 83 129/75 (93) 100 04/19/25 18:58 81 8 128/76 (93) 100 04/19/25 18:53 79 132/73 (92) 04/19/25 18:50 132/73 04/19/25 18:48 77 30 116/74 (88) 100 04/19/25 18:46 60/35 04/19/25 18:43 81 8 116/67 (83) 100 04/19/25 18:38 75 11 93/58 (70) 99 04/19/25 18:33 75 21 83/50 (61) 98 04/19/25 18:30 78 10 78/48 (58) 96 04/19/25 18:29 79 15 79/54 (62) 96 04/19/25 18:27 80 17 56/34 (41) 86 04/19/25 18:23 86 17 60/35 (43) 88 04/19/25 18:21 70 20 117/49 (71) 94 100 04/19/25 18:13 96 04/19/25 18:12 97.4 95 16 105/68 (80) 97.4 Laboratory Tests Test 04/19/25 18:14 04/19/25 19:52 Lactic Acid Level 10.7 mmol/L (0.4-2.0) *H 7.3 mmol/L (0.4-2.0) *H White Blood Count 4.2 10^3/uL (4.4-10.8) L Medications Medications Dose Ordered Sig/Brittany Route Start Time Stop Time Status Last Admin Dose Admin Calcium Gluconate/ Sodium Chloride 50 ml @ 100 mls/hr Q30M IV 04/19/25 19:15 04/19/25 20:14 DC 04/19/25 22:21 100 MLS/HR Heparin Sodium (Porcine) 1,000 units ONCE ONCE IV 04/19/25 21:15 04/19/25 21:30 DC 04/19/25 22:21 1,000 UNITS Midazolam HCl 100 ml @ 1 mls/hr Q24H IV 04/19/25 21:45 04/19/25 21:27 1 MLS/HR Norepinephrine Bitartrate 250 ml @ 3.75 mls/hr Q24H IV 04/19/25 18:30 04/19/25 18:46 56.25 MLS/HR Propofol 100 ml @ 2.7 mls/hr Q24H IV 04/19/25 21:00 04/19/25 21:09 2.7 MLS/HR Sodium Bicarbonate 100 ml ONCE ONCE IV 04/19/25 19:30 04/19/25 19:56 DC 04/19/25 22:27 100 ML Sodium Chloride 1,000 ml @ 1,000 mls/hr Q1H ONCE IV 04/19/25 18:45 04/19/25 19:44 DC 04/19/25 18:32 1,000 MLS/HR Assessment/Plan Assessment/Plan Cardiopulmonary arrest Ventilator dependent Hyperglycemia Elevated liver enzymes Urinary tract infection Sepsis, unspecified organism Electrolyte imbalance NSTEMI non ST elevated myocardial infarction Generalized weakness Plan 1. Admit to intensive care unit 2. Breathing treatment 3. Pain control management 4. IV antibiotic management 5. Management of fluids and electrolytes 6. Consultation for Cardiology/pulmonology 7. Diagnostic test chest/abdomen/pelvic CT 8. DVT prophylaxis-on heparin 9. Repeat labs CBC, CMP in a.m. 10. Home medication reviewed and reconciled 11. Continue with current medical management 12. Treatment plan discussed with patient and RN. Patient verbalized understa nding. Plan discussed with: Patient, Other (RN) My Orders Orders - ELEANOR RM DNP Procedure Category Date Status Time * Surgical Consult CONS 04/19/25 Transmitted * Cardiology Consult CONS 04/19/25 Transmitted 21:04 *Consult CONS 04/19/25 Transmitted 21:04 Ceftriaxone 1gm/50ml PHA 04/20/25 In Process (Rocephin) 09:00 Vancomycin Per PHA 04/19/25 In Process Pharmacy 21:15 Ibuprofen 100mg/5 Ml PHA 04/19/25 In Process Oral Susp (Motrin 1 21:15 Furosemide Injection PHA 04/20/25 In Process (Lasix Injection) 10:00 Phosphorus LAB 04/20/25 Verified 04:00 Magnesium LAB 04/20/25 Verified 04:00 Glucose Blood PHA 04/20/25 In Process (Accu-Chek Comfort 00:00 Insulin R (Human) PHA 04/20/25 In Process (Insulin R) 00:00 Dextrose 50% Syringe PHA 04/19/25 In Process 21:15 Allergies MARJ 04/19/25 In Process 21:04 Code Status CODE 04/19/25 Transmitted 21:04 Sodium Chloride Lock PHA 04/19/25 In Process (Saline Lock Ns) 22:00 Oxygen Per Hour RT 04/19/25 Transmitted 21:04 Ondansetron Hcl PHA 04/19/25 In Process (Zofran) 21:15 Fall Risk Precautions MARJ 04/19/[address] 21:04 Complete Blood Count LAB 04/20/25 Verified 04:00 Comprehensive LAB 04/20/25 Verified Metabolic Panel 04:00 Npo (Nothing By DIET 04/20/25 Transmitted Mouth) Diet Breakfast Condition: Serious MARJ 04/19/25 In Process 21:04 Maintain Bed Rest MARJ 04/19/25 In Process 21:04 Sequential MARJ 04/19/25 In Process Compression Device Vancomycin 1gm/250ml PHA 04/19/25 In Process Kit 21:45 Vancomycin,Random LAB 04/20/25 Verified 04:00 Problem List: (1) Cardiopulmonary arrest (2) Hyperglycemia (3) Ventilator dependent (4) Elevated liver enzymes (5) Urinary tract infection (6) Sepsis, unspecified organism (7) Electrolyte imbalance (8) NSTEMI (non-ST elevated myocardial infarction) (9) Generalized weakness Date of Service: Apr 19, 2025 Billing Provider: ELEANOR RM DNP Common Visit Codes: [id number] INP/OBS CARE (HIGH) ELEANOR RM DNP Apr 19, 2025 22:32
[2025-04-19] MEDS: CALCIUM GLUC 1,000mg/50ml-NS 50 ML IV ONE ×2 (22:40→22:58)
[2025-04-19] MEDS: LACTATED RINGER'S 1,000 ML IV ONE (22:45)
--- NOTE | 2025-04-19 22:48 | DVH ---
CHEST RADIOGRAPH INDICATION: CENTRAL LINE PLACEMENT TECHNIQUE: Single frontal view of the chest was obtained COMPARISON: XY CHEST PORTABLE on DOS: 04/19/25 FINDINGS: ETT terminating 4.6 cm above the valerio. Right IJ line with tip near the cavoatrial junction. NG tube in the proximal stomach. Streaky atelectatic changes at both lung bases, minimally changed. IMPRESSION: Lines and tubes as above. Streaky atelectatic changes at the lung bases.
[2025-04-19] MEDS: LACTATED RINGER'S 2,450 ML IV ONE (23:03)
[2025-04-19] MEDS: FUROSEMIDE 20 MG/2 ML VIAL IV ONE (23:09)
[2025-04-19 23:21] VITALS: BP 145/64; PULSE 93; RESP 25; TEMP 97.4; O2SAT 99
--- NOTE | 2025-04-19 23:30 | ECG ---
[facility] Test Date: 2025-04-19 Test Time: 22:09:06 Pat Name: SANDRA SUH Department: Room: [address] [place] [address] Gender: M [employer]: NORRIS : 1955 Requested By: DALTON FREDERICK Order Number: [id number] Reading MD: Jon Paredes Measurements Intervals [place] Rate: 93 P: 85 CA: 162 QRS: 264 QRSD: 116 T: 96 QT: 382 QTc: 476 Interpretive Statements Sinus rhythm Nonspecific IVCD with LAD Inferior infarct, acute (RCA) Lateral leads are also involved Probable RV involvement, suggest recording right precordial leads Electronically Signed On 04-21-2025 16:31:15 PST by Jon Paredes Please click the below link to view image of tracing.
[2025-04-20] VITALS (20 sets, daily range): BP systolic 59–144; BP diastolic 38–122; PULSE 68–101; RESP 18–26; TEMP 97; O2SAT 90–100
[2025-04-20] MEDS: InsuLIN REG 1unit/0.01ml Soln (100units/ml) SC SCH
[2025-04-20] MEDS ORDERED: ACCU-CHEK COMFORT CURVE STRIP VI SCH
[2025-04-20] MEDS: VANCOMYCIN 1GM/250ML KIT 250 ML IV SCH (02:21)
[2025-04-20 02:26] LABS: Lactic Acid w/Reflex 5.3 mmol/L (0.4-2.0)
[2025-04-20] MEDS: LACTATED RINGER'S 250 ML IV ONE (03:30)
[2025-04-20] MEDS: CEFEPIME 1GM/50ML 50 ML IV ONE (04:24)
[2025-04-20 04:44] LABS: Hematocrit 47.6 % (41.0-53.0); Hemoglobin 15.3 g/dL (13.5-17.5); Mean Corpuscular Hemoglobin 29.5 pg (28.0-32.0); Mean Corpuscular Volume 91.7 fL (80.0-100.0)
[2025-04-20 04:46] LABS: Albumin 3.6 g/dL (3.2-4.8); Anion Gap 13 (5-15); BUN/Creatinine Ratio 11.3 (10.0-20.0); Blood Urea Nitrogen 21 mg/dL (9-23); Chloride 107 mmol/L (98-107); Potassium 4.3 mmol/L (3.5-5.1); Sodium 139 mmol/L (136-145); Total Protein 5.7 g/dL (5.7-8.2)
[2025-04-20 04:47] LABS: Bilirubin, Total 0.4 mg/dL (0.2-1.0)
[2025-04-20 04:54] LABS: Alanine Aminotransferase 325 U/L (7-40); Alkaline Phosphatase 198 U/L (46-116); Calcium 8.3 mg/dL (8.7-10.4); Carbon Dioxide 19 mmol/L (20-31); Glucose 182 mg/dL (74-106)
[2025-04-20 07:02] LABS: Total Cells Counted 100.0 (100)
[2025-04-20 07:55] LABS: Lactic Acid w/Reflex 5.5 mmol/L (0.4-2.0)
[2025-04-20 08:26] LABS: Base Excess -12.4 mmol/L (-2.0-3.0)
[2025-04-20] MEDS: FUROSEMIDE 20 MG/2 ML VIAL IV SCH (10:36)
[2025-04-20] MEDS: DOPamine 1600MCG/ML D5W 250 ML IV SCH (10:57)
[2025-04-20] MEDS: PROPOFOL 100 ML IV ONE ×4 (11:59→12:31)
[2025-04-20] MEDS: VANCOMYCIN 1GM/250ML KIT 250 ML IV ONE (12:02)
[2025-04-20] MEDS: InsuLIN REG 1unit/0.01ml Soln (100units/ml) ONE (12:03)
[2025-04-20] MEDS: PHENYLEPHRINE IV 250 ML IV SCH (12:04)
[2025-04-20] MEDS: NOREPINEPHRINE 8 MG/250ML KIT 250 ML IV ONE ×3 (12:12→17:07)
[2025-04-20] MEDS: MIDAZOLAM DRIP 100 mg/100mL NS 100 ML IV ONE (12:13)
[2025-04-20] MEDS: DOPamine 1600MCG/ML D5W 250 ML IV ONE (12:31)
[2025-04-20] MEDS: PHENYLEPHRINE IV 250 ML IV ONE (12:32)
[2025-04-20] MEDS: SODIUM CHLORIDE 0.9% 250 ML IV ONE ×2 (13:19→13:31)
[2025-04-20] MEDS ORDERED: HEPARIN DRIP/D5W 100UNITS/ML 250 ML IV SCH (13:30)
[2025-04-20] MEDS: SODIUM BICARB 8.4% 50Meq/50ml SYR Vial IV ONE (13:31)
--- NOTE | 2025-04-20 13:42 | DVHINCON2 ---
Date of service: Apr 20, 2025 Allergies: Uncoded Allergies: CORTIZONE TOPICAL (Allergy, Severe, 04/18/22) Current Medications Current Medications Medications (Trade) Dose Ordered Sig/Brittany Route PRN Reason Start Time Stop Time Status Last Admin Norepinephrine Bitartrate 250 ml @ 3.75 mls/hr Q24H IV 04/19/25 18:30 04/20/25 12:48 Calcium Gluconate/ Sodium Chloride 50 ml @ 100 mls/hr Q30M IV 04/19/25 19:15 04/19/25 20:14 DC 04/19/25 22:45 Propofol 100 ml @ 2.7 mls/hr Q24H IV 04/19/25 21:00 04/20/25 11:13 Ceftriaxone Sodium 50 ml @ 100 mls/hr DAILY@09 IV 04/20/25 09:00 04/20/25 09:15 Vancomycin HCl 0 ml @ 0 mls/hr PER PHARMACY IV 04/19/25 21:15 Ibuprofen (MOTRIN 100MG/5 mL ORAL SUSP) 400 mg Q4HP PRN GT TEMP GREATER THAN 100.4 04/19/25 21:15 Furosemide (Lasix Injection) 20 mg DAILY IV 04/20/25 10:00 Diagnostic Test (Pha) (Accu-Chek Comfort Curve T) 1 strip IQ4HR 04/20/25 00:00 04/19/25 22:33 DC Insulin Human Regular (InsuLIN R) IQ4HR SC 04/20/25 00:00 04/20/25 03:53 Dextrose 50 ml UD PRN IV Blood Sugar LESS THAN 60 04/19/25 21:15 04/19/25 22:33 DC Sodium Chloride (Saline Lock Ns) 10 ml Q8HR IV 04/19/25 22:00 04/20/25 06:00 Ondansetron HCl (Zofran) 4 mg Q4HP PRN IV NAUSEA / VOMITING 04/19/25 21:15 Hold Midazolam HCl 100 ml @ 1 mls/hr Q24H IV 04/19/25 21:45 04/20/25 07:02 Vancomycin HCl 250 ml @ 250 mls/hr Q1H IV 04/19/25 21:45 04/19/25 23:44 DC 04/20/25 03:27 Nitroglycerin (Ntrostat Sublingual) 0.4 mg Q5MINP PRN SL FOR CHEST PAIN 04/19/25 22:30 Morphine Sulfate 2 mg Q30M PRN IV FOR CHEST PAIN 04/19/25 22:30 Dopamine HCl/ Dextrose 250 ml @ 16.875 mls/ hr [id number] IV 04/20/25 10:45 04/20/25 10:57 Phenylephrine HCl 250 ml @ 30 mls/hr Q8H20M IV 04/20/25 11:45 04/20/25 12:04 Vasopressin 20 units/Sodium Chloride 100 ml @ 9 mls/hr Q11H7M IV 04/20/25 13:30 UNV Heparin Sodium/ Dextrose 250 ml @ 10.8 mls/hr Q23H9M IV 04/20/25 13:30 UNV Vital Signs Vital Signs Date Time Temp Pulse Resp B/P (MAP) Pulse Ox O2 Delivery O2 Flow Rate FiO2 04/20/25 13:05 71/45 04/20/25 10:45 91 20 90 04/20/25 07:35 98.8 98.8 04/20/25 07:35 Mechanical Ventilator+ 30 30 04/19/25 19:31 0 Labs/Diagnostic Data Labs Test 04/20/25 12:45 04/20/25 12:17 04/20/25 08:14 04/20/25 06:47 Range/Units POC Glucose 94 70-106 mg/dl Blood Gas Specimen Type Arterial Blood Gas Sample Site Left radial Blood Gas Patient Temperature 37.0 Arterial Blood Date Drawn [id number] Arterial Blood pH 7.223 *L 7.350-7.450 Arterial Blood Partial Pressure CO2 35.2 35.0-48.0 mmHg Arterial Blood Partial Pressure O2 120.6 H 83.0-108.0 mmHg Arterial Blood HCO3 14.2 L 21.0-28.0 mmol/L Arterial Blood Oxygen Saturation 98.1 H 94.0-98.0 % Arterial Blood Base Excess -12.4 L -2.0-3.0 mmol/L Arterial Blood Oxyhemoglobin 96.3 94.0-98.0 % Arterial Blood Carboxyhemoglobin 1.7 H 0.5-1.5 % Arterial Blood Methemoglobin 0.1 0.0-1.5 % Arterial Blood Deoxyhemoglobin 1.9 0.0-5.0 % Bassam Test Modified Blood Gas Total Hemoglobin 15.90 13.5-17.5 g/dL Blood Gas Set Respiration Rate 20.0 Blood Gas Modality Vent - ac Blood Gas Spontaneous Rate 23 FiO2 % 30.0 Blood Gas Tidal Volume 450.0 Blood Gas PEEP or CPAP 5.0 Blood Gas Critical Value Read Back Yes Blood Gas Notified Whom cherelle Wolf md. Blood Gas Notified Time [id number] Blood Gas Notified By adry Mclean rt. Lactic Acid Level 5.5 *H 0.4-2.0 mmol/L Test 04/20/25 06:00 04/20/25 03:43 04/19/25 21:34 04/19/25 18:20 Range/Units Stool Occult Blood Positive Negative Stool Occult Blood Sample #3 Negative White Blood Count 8.3 # 4.4-10.8 10^3/uL Red Blood Count 5.19 4.5-5.90 10^6/uL Hemoglobin 15.3 # 13.5-17.5 g/dL Hematocrit 47.6 # 41.0-53.0 % Mean Corpuscular Volume 91.7 # 80.0-100.0 fL Mean Corpuscular Hemoglobin 29.5 28.0-32.0 pg Mean Corpuscular Hemoglobin Concent 32.1 32.0-36.0 g/dL Red Cell Distribution Width 15.7 H 11.8-14.3 % Platelet Count 196 # 140-450 10^3/uL Mean Platelet Volume 9.6 6.9-10.8 fL Neutrophils (%) (Auto) 37.0-80.0 % Lymphocytes (%) (Auto) 10.0-50.0 % Monocytes (%) (Auto) 0.0-12.0 % Basophils (%) (Auto) 0.0-2.0 % Neutrophils # (Auto) 1.6-8.6 10 ^3/uL Lymphocytes # (Auto) 0.4-5.4 10 ^3/uL Monocytes # (Auto) 0-1.3 10 ^3/uL Differential Total Cells Counted 100.0 100 Neutrophils % (Manual) 82 H 37.0-80.0 Band Neutrophils % (Manual) 9 Lymphocytes % (Manual) 8 L 10.0-50.0 Monocytes % (Manual) 1 0-12 Eosinophils % (Manual) 0 0-7 Basophils % (Manual) 0 0.0-2.0 Metamyelocytes % (manual) 0 Myelocytes % (Manual) 0 Promyelocytes % (Manual) 0 Blast Cells % (Manual) 0 Reactive Lymphocytes 0 Platelet Estimate Adequate Sodium Level 139 136-145 mmol/L Potassium Level 4.3 3.5-5.1 mmol/L Chloride Level 107 98-107 mmol/L Carbon Dioxide Level 19 L 20-31 mmol/L Anion Gap 13 5-15 Blood Urea Nitrogen 21 9-23 mg/dL Creatinine 1.86 H 0.700-1.30 mg/dL Glomerular Filtration Rate Calc 38 >90 mL/min BUN/Creatinine Ratio 11.3 10.0-20.0 Serum Glucose 182 #H 74-106 mg/dL Calcium Level 8.3 L 8.7-10.4 mg/dL Total Bilirubin 0.4 0.2-1.0 mg/dL Aspartate Amino Transferase (AST) 1433 H 13-40 U/L Alanine Aminotransferase (ALT) 325 H 7-40 U/L Alkaline Phosphatase 198 H 46-116 U/L Total Protein 5.7 5.7-8.2 g/dL Albumin 3.6 3.2-4.8 g/dL Troponin I High Sensitivity > 08060 *H </=54 ng/L Urine Color Yellow Yellow Urine Clarity Turbid H Clear Urine pH 6.0 5.0-9.0 Urine Specific [place] 1.025 1.001-1.035 Urine Protein 1+ H Negative Urine Ketones Negative Negative Urine Blood 1+ H Negative /uL Urine Nitrite Negative Negative Urine Bilirubin Negative Negative Urine Urobilinogen Normal Negative mg/dL Urine Leukocyte Esterase 1+ Negative /uL Urine RBC 13 0 - 3 /hpf Urine Microscopic WBC 16 H 0-3 /HPF Urine Squamous Epithelial Cells Few <5 /hpf Urine Bacteria Few H None Seen /hpf Urine Hyaline Casts Few 0 - 2 /lpf Urine Mucus Few None Seen Urine Glucose Normal Normal mg/dL Test 04/19/25 18:14 Range/Units Hemoglobin A1c 5.4 <5.7 % A1C Phosphorus Level 8.0 H 2.4-5.1 mg/dL Magnesium Level 2.7 H 1.6-2.6 mg/dL B-Type Natriuretic Peptide 198.22 0-100 pg/mL Lipase 41 12-53 U/L Microbiology Date/Time Source Procedure Growth Status 04/20/25 06:00 Stool Stool Culture Pending Resulted 04/20/25 06:00 Stool Shiga Toxin I & II Pending Resulted 04/20/25 06:00 Stool Clostridium difficile Toxin Assay - Final Resulted 04/19/25 19:36 Trachea Gram Stain - Final Resulted 04/19/25 19:36 Trachea Respiratory Culture - Preliminary Resulted 04/19/25 18:20 Voided Urine Urine Culture - Preliminary No growth Resulted Assessment [id number] INTUBATED CARDIAC ARREST CPR ABD SOFT CT SCAN POSSIBLE ILEUS/ENTERITIS HIGH RISK FOR SURGERY NO INDICATION FOR URGENT SURGERY CLOSE OBSERVATION NPO NG Plan discussed with: Other DARWIN BARRY MD Apr 20, 2025 13:42
[2025-04-20 13:50] LABS: COVID19 ANTIGEN SOFIA FIA NEGATIVE (NEGATIVE)
[2025-04-20] MEDS: VASOPRESSIN 20 UNITS in SODIUM CHL 0.9% 99 ML IV SCH (13:50)
[2025-04-20 13:52] LABS: Base Excess -17.4 mmol/L (-2.0-3.0)
--- NOTE | 2025-04-20 14:26 | DVHINCON2 ---
Date Seen: Apr 20, 2025 Referring Physician LEROY Hagan Reason for Consultation Elevated troponin History of Present Illness This is a 69-year-old male patient who presents to the emergency room status post cardiac arrest. At the time of assessment, the patient is chemically sedated and mechanically ventilated. The patient's at bedside is able to provide an accurate history of what happened. Per the patient's , she found the patient unresponsive on the couch and she initiated CPR. She called 911 immediately and when medics arrived, CPR continued en route this facility. Return of spontaneous circulation was achieved at this facility. Cardiology has now been consulted for elevated troponin level. Initial twelve lead electrocardiogram reveals an ectopic atrial rhythm with underlying left bundle branch block with global repolarization pattern (EKG was sent to continuity editor plastics patternmaker who deemed it was not a STEMI). Initial troponin level of 1227ng/L with significant up trend and levels reaching >61134mp/L. 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 Past Medical History Past medical history reviewed. No other significant than mentioned above. Past Surgical History Small-bowel in tumor resection in September 2023 Pulmonary artery aneurysm repair in September 2024 Family History Family history reviewed. Social History Denies the use of tobacco, alcohol or illicit drugs. Allergies: Uncoded Allergies: CORTIZONE TOPICAL (Allergy, Severe, 04/18/22) Home Meds Home medications reviewed. Current Medications Current Medications Medications (Trade) Dose Ordered Sig/Brittany Route PRN Reason Start Time Stop Time Status Last Admin Norepinephrine Bitartrate 250 ml @ 3.75 mls/hr Q24H IV 04/19/25 18:30 04/20/25 12:48 Calcium Gluconate/ Sodium Chloride 50 ml @ 100 mls/hr Q30M IV 04/19/25 19:15 04/19/25 20:14 DC 04/19/25 22:45 Propofol 100 ml @ 2.7 mls/hr Q24H IV 04/19/25 21:00 04/20/25 11:13 Ceftriaxone Sodium 50 ml @ 100 mls/hr DAILY@09 IV 04/20/25 09:00 04/20/25 09:15 Vancomycin HCl 0 ml @ 0 mls/hr PER PHARMACY IV 04/19/25 21:15 Ibuprofen (MOTRIN 100MG/5 mL ORAL SUSP) 400 mg Q4HP PRN GT TEMP GREATER THAN 100.4 04/19/25 21:15 04/20/25 13:58 DC Furosemide (Lasix Injection) 20 mg DAILY IV 04/20/25 10:00 04/20/25 13:58 DC Diagnostic Test (Pha) (Accu-Chek Comfort Curve T) 1 strip IQ4HR 04/20/25 00:00 04/19/25 22:33 DC Insulin Human Regular (InsuLIN R) IQ4HR SC 04/20/25 00:00 04/20/25 03:53 Dextrose 50 ml UD PRN IV Blood Sugar LESS THAN 60 04/19/25 21:15 04/19/25 22:33 DC Sodium Chloride (Saline Lock Ns) 10 ml Q8HR IV 04/19/25 22:00 04/20/25 06:00 Ondansetron HCl (Zofran) 4 mg Q4HP PRN IV NAUSEA / VOMITING 04/19/25 21:15 Hold Midazolam HCl 100 ml @ 1 mls/hr Q24H IV 04/19/25 21:45 04/20/25 07:02 Vancomycin HCl 250 ml @ 250 mls/hr Q1H IV 04/19/25 21:45 04/19/25 23:44 DC 04/20/25 03:27 Nitroglycerin (Ntrostat Sublingual) 0.4 mg Q5MINP PRN SL FOR CHEST PAIN 04/19/25 22:30 Morphine Sulfate 2 mg Q30M PRN IV FOR CHEST PAIN 04/19/25 22:30 Dopamine HCl/ Dextrose 250 ml @ 16.875 mls/ hr [id number] IV 04/20/25 10:45 04/20/25 10:57 Phenylephrine HCl 250 ml @ 30 mls/hr Q8H20M IV 04/20/25 11:45 04/20/25 12:04 Vasopressin 20 units/Sodium Chloride 100 ml @ 9 mls/hr Q11H7M IV 04/20/25 13:30 04/20/25 13:50 Heparin Sodium/ Dextrose 250 ml @ 10.8 mls/hr Q23H9M IV 04/20/25 13:30 UNV Review of Systems Constitutional: No symptom reported Ears, Nose, & Throat: No symptom reported Eyes: No symptom reported Neurological: No symptoms reported Pulmonary/Respiratory: Cardiopulmonary arrest Cardiovascular: Cardiopulmonary arrest Gastrointestinal: No symptom reported Genitourinary: No symptom reported Musculoskeletal: No symptom reported Skin: No symptom reported Psychiatric: No symptom reported Endocrine: No symptom reported Hematologic/Lymphatic: No symptom reported Vital Signs Vital Signs Date Time Temp Pulse Resp B/P (MAP) Pulse Ox O2 Delivery O2 Flow Rate FiO2 04/20/25 13:50 83/49 04/20/25 10:45 91 20 90 04/20/25 07:35 98.8 98.8 04/20/25 07:35 Mechanical Ventilator+ 30 30 04/19/25 19:31 0 Physical Exam General Appearance: Well-nourished. No acute distress. Pulmonary/Respiratory: Clear, bilateral breaths sounds. Mechanically ventilated Cardiovascular/Chest: Regular rate and rhythm. Peripheral Pulses: 2+ Radial (R). 2+ Radial (L). 2+ Pedal (R). 2+ Pedal (L) Abdominal Exam: Normal bowel sounds. Ankle Exam: Negative ankle edema Lower extremities: Negative lower extremity edema Neuro/Mental Status: Chemically sedated, no cough or gag reflex noted. Pupils not reactive to light Thoughts/Psych: Deferred Appearance: No acute distress. Skin Exam: Normal inspection. Normal color. Warm and dry. Labs/Diagnostic Data Labs Test 04/20/25 13:42 04/20/25 12:45 04/20/25 12:17 04/20/25 06:47 Range/Units Blood Gas Specimen Type Arterial Blood Gas Sample Site Right radial Blood Gas Patient Temperature 37.0 Arterial Blood Date Drawn [id number] Arterial Blood pH 6.966 *L 7.350-7.450 Arterial Blood Partial Pressure CO2 70.0 *H 35.0-48.0 mmHg Arterial Blood Partial Pressure O2 63.6 L 83.0-108.0 mmHg Arterial Blood HCO3 15.6 L 21.0-28.0 mmol/L Arterial Blood Oxygen Saturation 87.3 L 94.0-98.0 % Arterial Blood Base Excess -17.4 L -2.0-3.0 mmol/L Arterial Blood Oxyhemoglobin 84.4 L 94.0-98.0 % Arterial Blood Carboxyhemoglobin 3.0 H 0.5-1.5 % Arterial Blood Methemoglobin 0.3 0.0-1.5 % Arterial Blood Deoxyhemoglobin 12.3 H 0.0-5.0 % Bassam Test Modified Blood Gas Total Hemoglobin 15.90 13.5-17.5 g/dL Blood Gas Set Respiration Rate 22.0 Blood Gas Modality Vent - ac Blood Gas Spontaneous Rate 22 FiO2 % 40.0 Blood Gas Tidal Volume 450.0 Blood Gas PEEP or CPAP 5.0 Blood Gas Critical Value Read Back Yes Blood Gas Notified Whom Ddr. archibald Blood Gas Notified Time [id number] Blood Gas Notified By adry Mclean rt. Influenza Type A Antigen Negative Negative Influenza Type B Antigen Negative Negative SARS-CoV-2 Antigen (Rapid) Negative NEGATIVE POC Glucose 94 70-106 mg/dl Lactic Acid Level 5.5 *H 0.4-2.0 mmol/L Test 04/20/25 06:00 04/20/25 03:43 04/19/25 21:34 04/19/25 18:20 Range/Units Stool Occult Blood Positive Negative Stool Occult Blood Sample #3 Negative White Blood Count 8.3 # 4.4-10.8 10^3/uL Red Blood Count 5.19 4.5-5.90 10^6/uL Hemoglobin 15.3 # 13.5-17.5 g/dL Hematocrit 47.6 # 41.0-53.0 % Mean Corpuscular Volume 91.7 # 80.0-100.0 fL Mean Corpuscular Hemoglobin 29.5 28.0-32.0 pg Mean Corpuscular Hemoglobin Concent 32.1 32.0-36.0 g/dL Red Cell Distribution Width 15.7 H 11.8-14.3 % Platelet Count 196 # 140-450 10^3/uL Mean Platelet Volume 9.6 6.9-10.8 fL Neutrophils (%) (Auto) 37.0-80.0 % Lymphocytes (%) (Auto) 10.0-50.0 % Monocytes (%) (Auto) 0.0-12.0 % Basophils (%) (Auto) 0.0-2.0 % Neutrophils # (Auto) 1.6-8.6 10 ^3/uL Lymphocytes # (Auto) 0.4-5.4 10 ^3/uL Monocytes # (Auto) 0-1.3 10 ^3/uL Differential Total Cells Counted 100.0 100 Neutrophils % (Manual) 82 H 37.0-80.0 Band Neutrophils % (Manual) 9 Lymphocytes % (Manual) 8 L 10.0-50.0 Monocytes % (Manual) 1 0-12 Eosinophils % (Manual) 0 0-7 Basophils % (Manual) 0 0.0-2.0 Metamyelocytes % (manual) 0 Myelocytes % (Manual) 0 Promyelocytes % (Manual) 0 Blast Cells % (Manual) 0 Reactive Lymphocytes 0 Platelet Estimate Adequate Sodium Level 139 136-145 mmol/L Potassium Level 4.3 3.5-5.1 mmol/L Chloride Level 107 98-107 mmol/L Carbon Dioxide Level 19 L 20-31 mmol/L Anion Gap 13 5-15 Blood Urea Nitrogen 21 9-23 mg/dL Creatinine 1.86 H 0.700-1.30 mg/dL Glomerular Filtration Rate Calc 38 >90 mL/min BUN/Creatinine Ratio 11.3 10.0-20.0 Serum Glucose 182 #H 74-106 mg/dL Calcium Level 8.3 L 8.7-10.4 mg/dL Total Bilirubin 0.4 0.2-1.0 mg/dL Aspartate Amino Transferase (AST) 1433 H 13-40 U/L Alanine Aminotransferase (ALT) 325 H 7-40 U/L Alkaline Phosphatase 198 H 46-116 U/L Total Protein 5.7 5.7-8.2 g/dL Albumin 3.6 3.2-4.8 g/dL Troponin I High Sensitivity > 68140 *H </=54 ng/L Urine Color Yellow Yellow Urine Clarity Turbid H Clear Urine pH 6.0 5.0-9.0 Urine Specific [place] 1.025 1.001-1.035 Urine Protein 1+ H Negative Urine Ketones Negative Negative Urine Blood 1+ H Negative /uL Urine Nitrite Negative Negative Urine Bilirubin Negative Negative Urine Urobilinogen Normal Negative mg/dL Urine Leukocyte Esterase 1+ Negative /uL Urine RBC 13 0 - 3 /hpf Urine Microscopic WBC 16 H 0-3 /HPF Urine Squamous Epithelial Cells Few <5 /hpf Urine Bacteria Few H None Seen /hpf Urine Hyaline Casts Few 0 - 2 /lpf Urine Mucus Few None Seen Urine Glucose Normal Normal mg/dL Test 04/19/25 18:14 Range/Units Hemoglobin A1c 5.4 <5.7 % A1C Phosphorus Level 8.0 H 2.4-5.1 mg/dL Magnesium Level 2.7 H 1.6-2.6 mg/dL B-Type Natriuretic Peptide 198.22 0-100 pg/mL Lipase 41 12-53 U/L Microbiology Date/Time Source Procedure Growth Status 04/20/25 06:00 Stool Stool Culture Pending Resulted 04/20/25 06:00 Stool Shiga Toxin I & II Pending Resulted 04/20/25 06:00 Stool Clostridium difficile Toxin Assay - Final Resulted 04/19/25 19:36 Trachea Gram Stain - Final Resulted 04/19/25 19:36 Trachea Respiratory Culture - Preliminary Resulted 04/19/25 18:20 Voided Urine Urine Culture - Preliminary No growth Resulted Assessment NSTEMI Cardiopulmonary arrest status post CPR with ROSC Rule out structural heart disease History of hypertension Dyslipidemia History of 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 Jeong): This case was reviewed and discussed with . We will proceed with obtaining a transthoracic echocardiogram to evaluate cardiac function. Continue with vasopressor therapy for hemodynamic support-initiate dopamine drip to increase cardiac output. At the time of assessment, the patient has no cough or gag reflex and pupils are not reactive to light during assessment. The patient most likely had a very long downtime prior to being brought to the emergency room. Due to possible neurological insult, the patient is not an ideal candidate at this time for any invasive cardiac procedures. Proceed with medical management for the time being. Continue with close cardiac surveillance. Thank you for allowing us to care for this patient. Please call with any questions or concerns. Critical care time spent: 44 minutes This medical document was created using an electronic medical record system with voice recognition software and computerized dictation system. Although this document has been carefully reviewed, there might still be some phonetic and typographical errors. Occasional wrong-word or ``sound-alike substitutions may have occurred due to the inherent limitations of voice recognition software. These areas are purely typographical due to imperfections of the software programs and do not reflect any compromise in the patient's medical care. Please read the chart carefully and recognize, using context, where these substitutions have occurred. Plan discussed with: Spouse NYHA Physical activity limitations: NA Date of Service: Apr 20, 2025 Billing Provider: THURSTON,ELISEO N MOLD FINISHER Cardiology Common Codes: 79888-SSOGYHN INP/OBS CARE (High) Cardiology Consultation Codes: 19832-XISIYQFGL CONSULT <45MIN ELISEO THURSTON MOLD FINISHER Apr 20, 2025 14:25
[2025-04-20 14:37] LABS: INR 1.07 (0.9-1.15); Partial Thromboplastin Time 32.8 SEC (24.5-34.5); Prothrombin Time 11.3 sec (9.3-11.8)
[2025-04-20] MEDS ORDERED: ARTIFICIAL TEARS 15ml EACHEYE PRN (15:00)
[2025-04-20] MEDS ORDERED: ARTIFICIAL TEARS 15ml EACHEYE ONE (15:00)
--- NOTE | 2025-04-20 17:10 | DVHPNRES ---
Progress Note Date Seen: Apr 20, 2025 Resident Creating Document: JACKELIN CASTILLO RESIDENT Medical Necessity Reason Pt with a Central, PICC or Fol: Yes The following are medically ne: Central Line, Kat Catheter Subjective Review of Systems This is a 69-year-old with past medical history of pulmonary embolism, hypertension, and hyperlipidemia who presented to [facility] ED for evaluation of full cardiac arrest. As reported by EMS, patient came from home where his found him unresponsive and called 911. When EMS arrived on the scene, had initiated CPR and patient's initial rhythm was asystole then converted to AFib then back to asystole. In route to the ED, patient was given x5 epinephrin and x2 lidocaine with no change in status. 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 patient was brought to the ER a subacute code blue intubated with ETT 7, 22 cm at the teeth and with IU in left tibia. Per history from , patient started complaining of congestion and flu-like symptoms on 04/14/2025. Patient eventually developed cough described as greenish in color on 04/16/2025. Patient reported some improvement in symptoms to the and on the of this month he started complaining of generalized weakness, which is his chronic baseline. On 04/18/2025, patient's returned home and found him passed out on the couch with dog in his lap. left home at 10:00 a.m. and was unsure about how long the patient was unconscious for. Daughter reported that they saw her father on camera at around 11:00 a.m.; unsure about any time line afterwards. Patient's initial vitals show hypothermia with temperature as low as 94.8, heart rate in 90s, hypotension with blood pressure going down to 56/34 with MAP of 43. in the ER he was started on IV ceftriaxone, vancomycin. Started on Furosemide 20 mg IV daily and sliding scale insulin. Initial labs showed low WBC count with neutrophilia, lactic acidosis, high blood glucose, high phosphorous, magnesium, elevated AST, ALT, BNP 198. his initial troponins were 1227 which continued to trend up. Supportive management and sedation started with morphine,midazolam, propofol, and Levophed for blood pressure support. Previous hospitalization: September 2024 for open heart surgery for pulmonary aneurysm repair PMHx: Just, pulmonary aneurysm, aortic aneurysm, depression, esophageal bleed PSHx: Pulmonary and aortic aneurysm repair, bowel resection Social history: Denies history of smoking. Patient independent, lives with . Home medication: Adderall, Tylenol, oxycodone, metoprolol tartrate, amlodipine, lamotrigine, imatinib Allergic history: No drug allergies; topical cortisone Review of system unobtainable at this time since patient is sedated and intubated. 04/20/2025: Patient was seen at bedside. Patient is sedated and intubated. Overnight, hypothermic with temperature 94.8 and hypotensive with lowest blood pressure 63/42. His labs show lactic acid trending up. Urine analysis positive for UTI. Patient is started on Levophed, Jerad-Synephrine, dopamine, vasopressin. Cardiology on board pending recommendations from Dr. Jeong. Objective vital signs Vital Sign Date Time Temp Pulse Resp B/P (MAP) Pulse Ox O2 Delivery O2 Flow Rate FiO2 04/20/25 16:15 85 20 79/47 (58) 93 04/20/25 16:00 97.8 97.8 04/20/25 07:55 30 04/20/25 07:35 Mechanical Ventilator+ 04/19/25 19:31 0 Total Intake and Output 04/19/25 04/19/25 04/20/25 15:00 23:00 07:00 Intake Total 1231.0200 ml 4601.6250 ml Balance 1231.0200 ml 4601.6250 ml medications Current Medications Medications Dose Ordered Sig/Brittany Route Start Time Stop Time Status Last Admin Dose Admin Norepinephrine Bitartrate 250 ml @ 3.75 mls/hr Q24H IV 04/19/25 18:30 04/20/25 12:48 56.25 MLS/HR Propofol 100 ml @ 2.7 mls/hr Q24H IV 04/19/25 21:00 04/20/25 11:13 27 MLS/HR Ceftriaxone Sodium 50 ml @ 100 mls/hr DAILY@09 IV 04/20/25 09:00 04/20/25 09:15 100 MLS/HR Vancomycin HCl 0 ml @ 0 mls/hr PER PHARMACY IV 04/19/25 21:15 Insulin Human Regular IQ4HR SC 04/20/25 00:00 04/20/25 03:53 3 UNITS Sodium Chloride 10 ml Q8HR IV 04/19/25 22:00 04/20/25 14:08 10 ML Ondansetron HCl 4 mg Q4HP PRN IV 04/19/25 21:15 Hold Midazolam HCl 100 ml @ 1 mls/hr Q24H IV 04/19/25 21:45 04/20/25 07:02 12 MLS/HR Nitroglycerin 0.4 mg Q5MINP PRN SL 04/19/25 22:30 Morphine Sulfate 2 mg Q30M PRN IV 04/19/25 22:30 Dopamine HCl/ Dextrose 250 ml @ 16.875 mls/ hr [id number] IV 04/20/25 10:45 04/20/25 14:55 67.5 MLS/HR Phenylephrine HCl 250 ml @ 30 mls/hr Q8H20M IV 04/20/25 11:45 04/20/25 16:09 135 MLS/HR Vasopressin 20 units/Sodium Chloride 100 ml @ 9 mls/hr Q11H7M IV 04/20/25 13:30 04/20/25 13:50 9 MLS/HR Artificial Tears 1 drop Q2HP PRN EACHEYE 04/20/25 15:00 Examination General: Patient is sedated and intubated, not following commands. HEENT: Nonreactive fixed pupils. Respiratory/pulmonary: Clear breath sounds heard bilaterally Cardiovascular: Distant heart sounds Abdomen: Soft abdomen with positive bowel sounds Extremities: Cold extremities, feeble pulses on palpation Skin: No rashes or pruritus, there is no sacral edema present at this time. laboratory and microbiology Laboratory Tests 04/20/25 03:43 Test 04/20/25 03:43 Range/Units Serum Glucose 182 #H 74-106 mg/dL Microbiology Date/Time Source Procedure Growth Status 04/20/25 06:00 Stool Stool Culture - Preliminary Resulted 04/20/25 06:00 Stool Shiga Toxin I & II - Final Resulted 04/20/25 06:00 Stool Clostridium difficile Toxin Assay - Final Resulted 04/19/25 19:36 Trachea Gram Stain - Final Resulted 04/19/25 19:36 Trachea Respiratory Culture - Preliminary Resulted 04/19/25 18:20 Voided Urine Urine Culture - Preliminary No growth Resulted Problem List/Assessment/Plan Problem List/Assessment/Plan Neurology # Sedated # Metabolic encephalopathy due to sepsis Continue antibiotic as below Cardiovascular # NSTEMI # Cardiopulmonary arrest status post CPR with ROSC # Rule out structural heart disease # Pulmonary artery aneurysm status post repair # History of hypertension # Dyslipidemia Trending troponin, EKG; elevated troponins Cardiology on board. Proceed with obtaining a transthoracic echocardiogram to evaluate cardiac function. Continue with vasopressor therapy for hemodynamic support-initiate dopamine drip to increase cardiac output. # ROSC s/p Cardiac arrest and CPR Patient was brought in by EMS for cardiac arrest, CPR started in field. ROSC at 6:10 p.m. on 04/19/2025 # Septic shock POA # Multiorgan failure On Levophed, vasopressin, Jerad-Synephrine Poor prognosis Respiratory # Ventilator Intubated on # Acute hypoxic respiratory failure # Sepsis due to community-acquired pneumonia, due to Gram-positive / Gram- negative bacteria # Aspiration pneumonia, POA CT show Bibasilar consolidations of bilateral lower lobes with peribronchial thickening, minimal traction bronchiolectasis. Inconspicuous ground-glass in the left upper lobe. Endotracheal tube in place. Overall correlate for aspiration related pneumonia. Continue IV ceftriaxone, vancomycin Gastrointestinal # GI bleed # Ileus, possible # Perihepatic ascites Stool occult blood, bacterial culture, C diff testing ordered Positive stool occult blood Monitor H&H; currently WNL CT abdomen show Distended gallbladder with intramural edema. Fluid distention of multiple bowel loops and air-fluid distention of the ascending colon. Correlate for ileus versus enteritis. Trace perihepatic ascites. # Acute gastroenteritis IV ceftriaxone 1 g daily IV vancomycin Clear liquid diet; Advance diet as tolerated # Shock liver Labs show elevated AST, ALT, ALP Renal # Kat catheter # CHINO on CKD class 2 # Mixed metabolic and respiratory acidosis # Lactic acidosis Initial blood gas show pH 7.04, pCO2 57, PO2 285. 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 Code status discussed greater than 20 minutes: Chemical CODE (Modified code). Family at bedside explained about the condition of the patient Plan discussed with Dr. Isaac Plan discussed with: Spouse, Daughter, Other (Nurses) My Orders My Orders Orders - JACKELIN CASTILLO Procedure Category Date Status Time Platelet Monitoring [facility] 04/20/25 In Process 13:30 Heparin Per [facility] 04/20/25 In Process Standardized Proce 13:30 Discontinue All Im [facility] 04/20/25 In Process Injections 13:30 Stat Ekg For Chest [facility] 04/20/25 In Process Pain 13:30 Artificial Tear 15ml PHA 04/20/25 In Process Opthalmic (Tears Na 15:00 Visit Coding STANDARD RES Billing Provider: JACKELIN CASTILLO Date of Service if different f: Apr 20, 2025 Common Visit Codes: 44307-UREPCTVJ CARE 30-74 MIN, 68255-WRCRPLGQ CARE-EACH +30MIN JACKELIN CASTILLO Apr 20, 2025 17:09 PRICE ISAAC MD Apr 22, 2025 13:05
[2025-04-20] MEDS: EPINEPHrine HCL 250 ML IV SCH (19:00)
[2025-04-20] MEDS: EPINEPHrine HCL 250 ML IV ONE (19:15)
[2025-04-20] MEDS: LORazepam 2MG/ML-1ML VIAL IV PRN (21:12)
[2025-04-20] MEDS: MORPHINE SULFATE 4 MG/ML SYR/VIAL IV PRN (21:12)
--- NOTE | 2025-04-21 02:39 | DVHINCON2 ---
DATE OF CONSULTATION: 04/20/2025 HISTORY OF PRESENT ILLNESS: This patient was seen by me in the Emergency Room. He is intubated. He is 69 years old and, according to the nursing staff and records, it indicates that he has a past medical history of pulmonary embolism, hypertension, hyperlipidemia, and came to the Emergency Room for evaluation of full cardiac arrest. He was found unresponsive. 911 was called and CPR was done. His heart rhythm converted to AFib and then back to asystole, and he received some medications en route as well. Chest and abdominal CT scan was done with bilateral lower lobes pneumonia and suspected small bowel obstruction/ileus that I was asked to see this patient regarding that. PAST MEDICAL HISTORY: Hypertension and as mentioned above. PAST SURGICAL HISTORY: Not available. PHYSICAL EXAMINATION: GENERAL: On examination, the patient is intubated. VITAL SIGNS: Hemodynamically labile. HEENT: Mildly pale. No cyanosis or jaundice. NECK: Supple, nontender with no thyromegaly or lymphadenopathy. CHEST AND LUNGS: Not evaluated. ABDOMEN: Soft but cannot be clinically evaluated because of his intubation. NEUROLOGIC: Not assessed. EXTREMITIES: Unremarkable. CLINICAL IMPRESSION: Rule out ileus, rule out enteritis. At this point, he has a cardiac event ongoing that is being managed medically, and at this point, he is not stable or has no indication for urgent surgery at this time. PLAN: So, the patient needs to be managed conservatively. MD TOM Lopez/DONNA TID: [id number] RECEIPT: [id number] cc: Arnold Hagan
--- NOTE | 2025-04-21 08:16 | DVHDSRES ---
Discharge Summary Date of Admission Resident Creating Document: JACKELIN CASTILLO RESIDENT Apr 19, 2025 at 22:29 Date of Discharge: Apr 20, 2025 Labs/Diagnostic Data: Laboratory Results Test 04/20/25 16:04 04/20/25 14:06 04/20/25 13:42 04/20/25 12:45 POC Glucose 113 mg/dl (70-106) Prothrombin Time 11.3 sec (9.3-11.8) Prothrombin Time INR 1.07 (0.9-1.15) Activated Partial Thromboplast Time 32.8 SEC (24.5-34.5) Blood Gas Specimen Type Arterial Blood Gas Sample Site Right radial Blood Gas Patient Temperature 37.0 Arterial Blood Date Drawn [id number] Arterial Blood pH 6.966 (7.350-7.450) Arterial Blood Partial Pressure CO2 70.0 mmHg (35.0-48.0) Arterial Blood Partial Pressure O2 63.6 mmHg (83.0-108.0) Arterial Blood HCO3 15.6 mmol/L (21.0-28.0) Arterial Blood Oxygen Saturation 87.3 % (94.0-98.0) Arterial Blood Base Excess -17.4 mmol/L (-2.0-3.0) Arterial Blood Oxyhemoglobin 84.4 % (94.0-98.0) Arterial Blood Carboxyhemoglobin 3.0 % (0.5-1.5) Arterial Blood Methemoglobin 0.3 % (0.0-1.5) Arterial Blood Deoxyhemoglobin 12.3 % (0.0-5.0) Bassam Test Modified Blood Gas Total Hemoglobin 15.90 g/dL (13.5-17.5) Blood Gas Set Respiration Rate 22.0 Blood Gas Modality Vent - ac Blood Gas Spontaneous Rate 22 FiO2 % 40.0 Blood Gas Tidal Volume 450.0 Blood Gas PEEP or CPAP 5.0 Blood Gas Critical Value Read Back Yes Blood Gas Notified Whom Ddr. archibald Blood Gas Notified Time [id number] Blood Gas Notified By adry Mclean rt. Influenza Type A Antigen Negative (Negative) Influenza Type B Antigen Negative (Negative) SARS-CoV-2 Antigen (Rapid) Negative (NEGATIVE) Test 04/20/25 06:47 04/20/25 06:00 04/20/25 03:43 04/19/25 21:34 Lactic Acid Level 5.5 mmol/L (0.4-2.0) Stool Occult Blood Positive (Negative) Stool Occult Blood Sample #3 (Negative) White Blood Count 8.3 10^3/uL (4.4-10.8) Red Blood Count 5.19 10^6/uL (4.5-5.90) Hemoglobin 15.3 g/dL (13.5-17.5) Hematocrit 47.6 % (41.0-53.0) Mean Corpuscular Volume 91.7 fL (80.0-100.0) Mean Corpuscular Hemoglobin 29.5 pg (28.0-32.0) Mean Corpuscular Hemoglobin Concent 32.1 g/dL (32.0-36.0) Red Cell Distribution Width 15.7 % (11.8-14.3) Platelet Count 196 10^3/uL (140-450) Mean Platelet Volume 9.6 fL (6.9-10.8) Neutrophils (%) (Auto) % (37.0-80.0) Lymphocytes (%) (Auto) % (10.0-50.0) Monocytes (%) (Auto) % (0.0-12.0) Basophils (%) (Auto) % (0.0-2.0) Neutrophils # (Auto) 10 ^3/uL (1.6-8.6) Lymphocytes # (Auto) 10 ^3/uL (0.4-5.4) Monocytes # (Auto) 10 ^3/uL (0-1.3) Differential Total Cells Counted 100.0 (100) Neutrophils % (Manual) 82 (37.0-80.0) Band Neutrophils % (Manual) 9 Lymphocytes % (Manual) 8 (10.0-50.0) Monocytes % (Manual) 1 (0-12) Eosinophils % (Manual) 0 (0-7) Basophils % (Manual) 0 (0.0-2.0) Metamyelocytes % (manual) 0 Myelocytes % (Manual) 0 Promyelocytes % (Manual) 0 Blast Cells % (Manual) 0 Reactive Lymphocytes 0 Platelet Estimate Adequate Sodium Level 139 mmol/L (136-145) Potassium Level 4.3 mmol/L (3.5-5.1) Chloride Level 107 mmol/L (98-107) Carbon Dioxide Level 19 mmol/L (20-31) Anion Gap 13 (5-15) Blood Urea Nitrogen 21 mg/dL (9-23) Creatinine 1.86 mg/dL (0.700-1.30) Glomerular Filtration Rate Calc 38 mL/min (>90) BUN/Creatinine Ratio 11.3 (10.0-20.0) Serum Glucose 182 mg/dL (74-106) Calcium Level 8.3 mg/dL (8.7-10.4) Total Bilirubin 0.4 mg/dL (0.2-1.0) Aspartate Amino Transferase (AST) 1433 U/L (13-40) Alanine Aminotransferase (ALT) 325 U/L (7-40) Alkaline Phosphatase 198 U/L (46-116) Total Protein 5.7 g/dL (5.7-8.2) Albumin 3.6 g/dL (3.2-4.8) Troponin I High Sensitivity > 95323 ng/L (</=54) Test 04/19/25 18:20 04/19/25 18:14 Urine Color Yellow (Yellow) Urine Clarity Turbid (Clear) Urine pH 6.0 (5.0-9.0) Urine Specific [place] 1.025 (1.001-1.035) Urine Protein 1+ (Negative) Urine Ketones Negative (Negative) Urine Blood 1+ /uL (Negative) Urine Nitrite Negative (Negative) Urine Bilirubin Negative (Negative) Urine Urobilinogen Normal mg/dL (Negative) Urine Leukocyte Esterase 1+ /uL (Negative) Urine RBC 13 /hpf (0 - 3) Urine Microscopic WBC 16 /HPF (0-3) Urine Squamous Epithelial Cells Few /hpf (<5) Urine Bacteria Few /hpf (None Seen) Urine Hyaline Casts Few /lpf (0 - 2) Urine Mucus Few (None Seen) Urine Glucose Normal mg/dL (Normal) Hemoglobin A1c 5.4 % A1C (<5.7) Phosphorus Level 8.0 mg/dL (2.4-5.1) Magnesium Level 2.7 mg/dL (1.6-2.6) B-Type Natriuretic Peptide 198.22 pg/mL (0-100) Lipase 41 U/L (12-53) Other Laboratory Tests 04/20/25 03:43 Brief Hx & Hospital Course: Declaration Summary: Patient Particulars: Mr. Nydia Nicholson, a 69-year-old man, presented to [facility] Emergency Department following a cardiac arrest at home. EMS reported that he was found unresponsive at home by his , who initiated CPR and called 911. His initial rhythm was asystole, briefly converted to atrial fibrillation, then reverted to asystole. He received five doses of epinephrine and two doses of lidocaine en route to the ED. ROSC was achieved at 18:10. He was intubated and admitted to the ICU on vasopressor support and broad-spectrum antibiotics. His medical history includes pulmonary embolism, hypertension, hyperlipidemia, pulmonary and aortic aneurysm repair, depression, and esophageal bleed. He was independent at baseline and lived with his . Preceding Event: On April 18, 2025, the patient was found unresponsive at home. Despite aggressive resuscitation and ICU management, he remained hypotensive and hypothermic with worsening lactic acidosis and multi-organ failure. Family elected for comfort measures and terminal weaning on April 20, 2025. Ventilator support and vasopressors were withdrawn, and the patient was medicated for comfort. Detailed bedside examination revealed: -The patient was unresponsive to verbal or painful stimuli. -Spontaneous Heart and lung sounds are absent. -No spontaneous cardiac or respiratory activity noted over 5 minutes. -No corneal pupillary reflex present while checked twice. -Pupils are fixed and dilated over the examination period. Code time-out performed. The patient was pronounced clinically on 21:33 on April 20, 2025 by MD Sabrina, resident. Patient's family and patient's nurse were updated by the healthcare team. Appropriate and empathic condolences were provided to the patient's dear ones. Condition at Discharge: Undetermined ( at hospital) Final Diagnosis/Problems List # NSTEMI type 1 # Cardiopulmonary arrest status post CPR with ROSC # Rule out structural heart disease # Pulmonary artery aneurysm status post repair # History of hypertension # Dyslipidemia # ROSC s/p Cardiac arrest and CPR # Septic shock POA # Multiorgan failure # Acute hypoxic respiratory failure # Sepsis due to community-acquired pneumonia, due to Gram-positive / Gram-negative bacteria # Aspiration pneumonia, POA # GI bleed # Ileus, possible # Perihepatic ascites # Acute gastroenteritis # Shock liver # CHINO on CKD class 2 # Mixed metabolic and respiratory acidosis # Lactic acidosis # Complicated UTI # Sepsis due to community-acquired pneumonia, due to Gram-positive / Gram-negative bacteria # Aspiration pneumonia, POA # Complicated UTI # Acute gastroenteritis # 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 Patient was counseled about treatment plan, medications, possible side effects, patientverbalized understanding. All questions were answered to the best of my ability. This discharge took greater then 30 minutes in planning, reviewing documentation, counseling the patient, and discussing with other team members." ASSESSMENT ASSESSMENT Assessment Visit Coding STANDARD RES Billing Provider: PRICE ISAAC MD Date of Service if different f: Apr 21, 2025 JACKELIN CASTILLO RESIDENT Apr 21, 2025 08:16 PRICE ISAAC MD Apr 22, 2025 13:12
== END 2025-04-20 21:33 | DRG 871 ==
LOC: ER 18:09 → EDBD 18:09 → OVERFLOW 22:29 → ER 22:32 → OVERFLOW 22:32
PROVIDERS: ADMIT Internal Medicine; ATTEND Internal Medicine
PROC: 0BH17EZ Insertion of Endotracheal Airway into Trachea, Via Natural or Artificial Opening (ICD-10-PCS; principal; 2025-04-19)
PROC: 5A1945Z Respiratory Ventilation, 24-96 Consecutive Hours (ICD-10-PCS; 2025-04-19)
PROC: 05HM33Z Insertion of Infusion Device into Right Internal Jugular Vein, Percutaneous Approach (ICD-10-PCS; 2025-04-19)
PROC: 5A12012 Performance of Cardiac Output, Single, Manual (ICD-10-PCS; 2025-04-20)
DX: A41.50 Gram-negative sepsis, unspecified (principal); I21.4 Non-ST elevation (NSTEMI) myocardial infarction; J15.69 Pneumonia due to other Gram-negative bacteria; J69.0 Pneumonitis due to inhalation of food and vomit; K72.00 Acute and subacute hepatic failure without coma; J96.01 Acute respiratory failure with hypoxia; J15.9 Unspecified bacterial pneumonia; I46.9 Cardiac arrest, cause unspecified; R18.8 Other ascites; Z99.11 Dependence on respirator [ventilator] status; N17.9 Acute kidney failure, unspecified; N39.0 Urinary tract infection, site not specified; F32.A Depression, unspecified; I12.9 Hypertensive chronic kidney disease with stage 1 through stage 4 chronic kidney disease, or unspecified chronic kidney disease; E87.20 Acidosis, unspecified; K56.7 Ileus, unspecified; Z20.822 Contact with and (suspected) exposure to COVID-19; R73.9 Hyperglycemia, unspecified; R74.01 Elevation of levels of liver transaminase levels; I48.91 Unspecified atrial fibrillation; E78.5 Hyperlipidemia, unspecified; G93.32 Myalgic encephalomyelitis/chronic fatigue syndrome; I44.7 Left bundle-branch block, unspecified; K52.9 Noninfective gastroenteritis and colitis, unspecified; N18.2 Chronic kidney disease, stage 2 (mild); Z85.00 Personal history of malignant neoplasm of unspecified digestive organ; Z86.711 Personal history of pulmonary embolism
CPT/HCPCS: 36415; 36556; 36600; 70450; 71045; 71260; 74177; 80053; 81001; 82270; 82805; 82962; 83036; 83605; 83690; 83735; 83880; 84100; 84484; 85007; 85027; 85610; 85730; 87040; 87045; 87070; 87086; 87205; 87426; 87427; 87493; 87804; 93005; 94002; 94003; 96361; 96374; G0378; J0169; J1815; J2704